=== PATIENT | female | born 1940 | race Caucasian/White ===

== ENCOUNTER → 2017-12-25 14:09 | Outpatient (CLI) | payer OTHER, SELFPAY ==
--- NOTE | 2017-12-25 | DI.RAD.S_ITS ---
PROCEDURE: XR CHEST 2V INDICATIONS: weakness,myalgia,fatigue TECHNIQUE: 2 views of the chest were acquired. COMPARISON: None. FINDINGS: Surgical changes and devices: None. Lungs and pleura: No pleural effusions or pneumothorax. Lungs are clear. Mediastinum: Mediastinal contours are normal. Heart size is normal. Bones and chest wall: No suspicious bony abnormalities. Soft tissues appear unremarkable. IMPRESSION: No source of weakness or myalgia is found. Prior left proximal humeral arthroplasty. Dictated by: George Hebert M.D. on 12/25/2017 at 14:43 Approved by: George Hebert M.D. on 12/25/2017 at 14:44
== END ==
PROVIDERS: PCP Physician Assistant; Visit Provider Physician Assistant
DX: M79.10 Myalgia, unspecified site (principal); R53.83 Other fatigue; R53.81 Other malaise
CPT/HCPCS: 71046

== ENCOUNTER → 2018-04-22 15:59 | Outpatient (CLI) | payer OTHER, SELFPAY ==
--- NOTE | 2018-04-22 16:01 | DI.MRI.S_ITS ---
PROCEDURE: MR LUMBAR SPINE WO CON INDICATIONS: Low back pain and stiffness TECHNIQUE: Noncontrast sagittal T1 spin echo and T2 fast echo, sagittal STIR, axial T1 and T2 fast spin echo through the lumbar spine. In cases with scoliosis, additional coronal T2 fast spin echo may be performed. COMPARISON: [facility], , L-SPINE WITHOUT CONTRAST, 12/14/2014, 9:51. FINDINGS: Image quality: Excellent. Alignment and Curvature: There is grade 1 anterolisthesis of L4 on L5 and L5 on S1. Bone Marrow: Marrow is of normal overall signal. No acute vertebral body compression fractures. Spinal Cord: Conus medullaris terminates at the L1 level. Visualized cord demonstrates normal signal and size. Paraspinous Soft Tissues: No paravertebral masses. L1-L2: Mild loss of disc height and disc desiccation. There is diffuse posterior disc bulge and disc osteophyte complex. Mild bilateral facet arthropathy and hypertrophy of ligamentum flavum. The central canal is mildly narrowed. Mild to moderate bilateral foraminal stenosis, increased compared to the last exam. L2-L3: Moderate loss of disc height and disc desiccation. There is diffuse posterior disc bulge and disc osteophyte complex. Mild bilateral facet arthropathy and hypertrophy of ligamentum flavum. The central canal is mildly narrowed. Mild to moderate bilateral foraminal stenosis, increased compared to the last exam. L3-L4: Moderate loss of disc height and disc desiccation. There is diffuse posterior disc bulge and disc osteophyte complex. Moderate bilateral facet arthropathy and hypertrophy of ligamentum flavum. The central canal is ffyr-sw-nxxhwpdbju narrowed. Moderate bilateral foraminal stenosis, increased compared to the last exam. L4-L5: Mild loss of disc height and disc desiccation. There is diffuse posterior disc bulge and disc osteophyte complex. Severe bilateral facet arthropathy and moderate hypertrophy of ligamentum flavum. The central canal is minimally narrowed. Nqyb-be-indvrxxg bilateral foraminal stenosis, increased compared to the last exam. L5-S1: Bzcoubhg-zm-obmvmd loss of disc height and disc desiccation. There is diffuse posterior disc bulge and disc osteophyte complex. Severe bilateral facet arthropathy. The central canal is patent. Moderate bilateral foraminal stenosis, increased compared to the last exam. IMPRESSION: 1. Progression of multilevel degenerative disc disease and facet arthropathy as described. 2. Mizs-zn-pnyqronh central canal stenosis at L3-L4. 3. Multilevel foraminal stenosis as described. Dictated by: Concepción Evans M.D. on 04/22/2018 at 17:10 Approved by: Concepción Evans M.D. on 04/22/2018 at 17:41
== END ==
PROVIDERS: PCP Physician Assistant; Visit Provider Physical Medicine & Rehabilitation
DX: M54.5 Low back pain (principal); M51.36 Other intervertebral disc degeneration, lumbar region; M51.37 Other intervertebral disc degeneration, lumbosacral region; M48.061 Spinal stenosis, lumbar region without neurogenic claudication; M48.07 Spinal stenosis, lumbosacral region; M47.816 Spondylosis without myelopathy or radiculopathy, lumbar region; M47.817 Spondylosis without myelopathy or radiculopathy, lumbosacral region; M43.16 Spondylolisthesis, lumbar region
CPT/HCPCS: 72148

== ENCOUNTER → 2018-05-21 12:45 | Outpatient (CLI) | payer OTHER, SELFPAY ==
--- NOTE | 2018-05-21 12:47 | DI.RAD.S_ITS ---
PROCEDURE: XR LUMBAR SPINE MIN 4V INDICATIONS: L4-5 L5-S1 spondylolisthesis TECHNIQUE: 5 views of the lumbar spine were acquired. COMPARISON: None. FINDINGS: Bones: No fracture or focal osseous destruction. Multilevel endplate spurring and sclerosis. Grade 1 anterolisthesis of L4 and L5 and L5 on S1. Diffuse facet arthropathy. Moderate narrowing of all the lumbar disc spaces except at L4-L5 where there is mild disc height loss. Soft tissues: Overlying bowel gas pattern is normal. No suspicious soft tissue calcifications. Oblique images: No pars defects. IMPRESSION: Diffuse moderate lumbar spondylosis and facet arthropathy. Grade 1 anterolisthesis of L4 and L5, and L5 on S1. Dictated by: Steve Grant M.D. on 05/21/2018 at 14:47 Approved by: Steve Grant M.D. on 05/21/2018 at 14:48
== END ==
PROVIDERS: PCP Physician Assistant; Visit Provider Physical Medicine & Rehabilitation
DX: M43.16 Spondylolisthesis, lumbar region (principal); M43.17 Spondylolisthesis, lumbosacral region; M47.816 Spondylosis without myelopathy or radiculopathy, lumbar region
CPT/HCPCS: 72110

== ENCOUNTER 2018-06-09 07:18 | Outpatient (CLI) | payer OTHER, SELFPAY ==
[2018-06-09] VITALS (8 sets, daily range): BP systolic 110–136; BP diastolic 43–84; PULSE 73–81; RESP 16–18; TEMP 36.2; O2SAT 95–98
--- NOTE | 2018-06-09 07:19 | DI.RAD.S_ITS ---
PROCEDURE: PAIN L/S FACET INJ/BLK 1ST FRITZ COMPARISON: None. INDICATIONS: SPINAL STENOSIS FINDINGS: There are bilateral L4-5 and L5 S1-1 limited localization is for injection along the expected interarticular facet joints in these 4 areas. IMPRESSION: Successful bilateral facet joint needle tip localization at L4-5 and L5-S1 for a subsequent series of facet joint steroid injections. Dictated by: George Hebert M.D. on 06/09/2018 at 10:50 Approved by: George Hebert M.D. on 06/09/2018 at 10:52
[2018-06-09] MEDS: MIDAZOLAM 5 MG/5 ML VIAL IV (08:37)
[2018-06-09] MEDS: LIDOCAINE 1% 20 ML INJ 10 ML INJ (08:40)
[2018-06-09] MEDS: IOPAMIDOL 15 ML VIAL 3 ML INJ (08:40)
[2018-06-09] MEDS: BETAMETHASONE 30 MG/5 ML MDV 12 MG INJ (08:40)
[2018-06-09] MEDS: BUPIVACAINE 0.5% (PF) VIAL 2 ML INJ (08:40)
--- NOTE | 2018-06-09 08:52 | PC.NURSE ---
Pt tolerated procedure. assisted off the table with standby assist. Transferred pt to pre procedure room via wheelchair for continued monitoring with Elyse BUTLER.
--- NOTE | 2018-06-09 08:58 | PM.PROC.1 ---
Procedures Date/Time Date of procedure: 06/09/18 Time of procedure: 08:58 General Procedure description: PREOP DIAGNOSIS 1. FACET ARTHROPATHY 2. AXIAL LBP 3. MULTILEVEL DDD POST OP DIAGNOSIS 1. FACET ARTHROPATHY 2. AXIAL LBP 3. MULTILEVEL DDD PROCEDURES 1. FLUORSCOPICALLY GUIDED CONTRAST CONTROLLED FACET JOINT INJECTIONS BILATERAL L4/5, L5/S1 PHYSICIAN: Savage Drake, DO INDICATIONS Kami Vicente is referred by [facility] for treatment of Axial LBP FINDINGS Multilevel Facet Arthropathy with Clinically significant axial LBP DESCRIPTION OF PROCEDURE Fluoroscopically guided, contrast-controlled bilateral L4/5, L5/S1 facet joint injections. Following denial of allergy and review of potential side effects and complications, including, but not necessarily limited to, infection, allergic reaction, local tissue breakdown, stroke, temporary or permanent nerve injury, paralysis, and possible , the patient indicated that the patient understood and agreed to proceed. An informed consent document was signed by the patient, witnessed by a nurse, and placed in the patient's chart. Additionally, other treatment options including medications, modalities, and physical therapy were reviewed with the patient. After review of previous anaesthesic history and IV conscious sedation the patient was deemed safe to proceed with todays procedure with IV conscious sedation as ASA class II designation. Safety time-out was performed to confirm patient ID, procedure to be performed and site of procedure. IV sedation was accomplished with 3mg of Versed as administered by the RN after DO order, titrated to patient comfort during the course of the procedure while the patient remained responsive to all verbal commands In the prone position, following sterile prep and drape of the lumbar region, the posterior aspect of the L4/5, L5/S1 facet joints were identified fluoroscopically. The skin was anesthetized via a 25-gauge 1.5-inch needle with 1% lidocaine solution into the corresponding facet joints. At this point, a 22-gauge 3.5-inch spinal needle was atraumatically introduced and advanced under fluoroscopic guidance into the corresponding facet joints. Following negative aspiration, injections of approximately 0.2-cc of Isovue 200 confirmed interarticular placement without vascular uptake. The identical procedure was then performed at the L4/5, L5/S1 facet joints on the left. Radiological data, including multiple fluoroscopic views of the lumbosacral spine, reveal a spinal needle at the L4/5, L5/S1 facet joints bilaterally. Subsequent views show flow of contrast material both superiorly and inferiorly within the joint space without vascular or intrathecal uptake. At this point, a total of 0.5 cc including a mixture of 0.25cc Marcaine and 0.25cc betamethasone was injected without complication into each of the corresponding facet joints. The patient tolerated the procedure well without signs or symptoms of complications prior to transfer to the recovery area continued monitoring without incident. The patient was then transferred to the recovery area where they were observed for an appropriate period of time after the injection. The patient reported a VAS score of 7 prior to the procedure and a post-procedure VAS of 0. Total Fluoroscopy Time: 20.3 seconds Total Conscious Sedation Time: 24min POST OP INSTRUCTIONS The patient was provided a Pain Log to continue to record their response to the target-specific procedure prior to follow-up visit with their referring physician. Additionally, specific post-injection care instructions and a contact number to our office were provided if concerns arise regarding possible complications associated with the procedure are suspected. Savage Drake DO Complications: none
== END 2018-06-09 09:25 | disposition home or self-care (01) ==
LOC: RAD 07:19
PROVIDERS: PCP Physician Assistant; Visit Provider Physical Medicine & Rehabilitation
DX: M47.816 Spondylosis without myelopathy or radiculopathy, lumbar region (principal); M47.817 Spondylosis without myelopathy or radiculopathy, lumbosacral region; M54.5 Low back pain; M51.36 Other intervertebral disc degeneration, lumbar region; M51.37 Other intervertebral disc degeneration, lumbosacral region
CPT/HCPCS: 64493; 64494; 99152; J0702; J2250

== ENCOUNTER 2018-07-13 14:43 | Emergency (ER) | payer OTHER, SELFPAY ==
--- NOTE | 2018-07-13 | DI.RAD.S_ITS ---
PROCEDURE: XR WRIST RT MIN 3V INDICATIONS: ground level fall with right wrist pain. TECHNIQUE: 4 views of the wrist were acquired. COMPARISON: None. FINDINGS: Bones: Deformity of the distal radius and scaphoid suggest prior, healed injury. No acute fracture or dislocation. Scaphoid view: The scaphoid appears deformed, but intact. Soft tissues: No suspicious soft tissue calcifications. IMPRESSION: Findings suspicious for prior, now healed trauma of the scaphoid and distal radius. No acute fracture visualized. If pain persists, followup imaging in 5-7 days is recommended to exclude occult fracture. Dictated by: Vivi Sprague M.D. on 07/13/2018 at 17:09 Approved by: Vivi Sprague M.D. on 07/13/2018 at 17:10
[2018-07-13 14:46] VITALS: BP 173/94; PULSE 72; RESP 16; TEMP 37.3; O2SAT 100
--- NOTE | 2018-07-13 16:09 | ED.HEATRA ---
HPI - Head Injury <Tawana Del Cid PA-C - Last Filed: 07/13/18 22:14> General Chief complaint: Head Injury Stated complaint: FALL HURT FACE Time Seen by Provider: 07/13/18 16:09 Source: patient Mode of arrival: ambulatory Limitations: no limitations History of Present Illness HPI Narrative: This 78-year-old female was walking her dog when she tripped over uneven sidewalk and fell forward. She thinks she bumped her right knee and hand but thinks those are okay. She also fell forward onto her face hitting her nose, mouth and lip area, and her lip has been bleeding. She does not think she hit her head but does have a mild frontal headache. She denies any nausea or vomiting. She denies any vision change. She denies any LOC, states she was ?surprised? for a few minutes, but was able to get up and walk. She denies any pain in her neck or back. She states her glasses did not break. She denies any other pain or injury. Related Data Home Medications Medication Instructions Recorded Confirmed celecoxib 200 mg capsule 200 mg PO DAILY PRN #0 cap 05/24/18 06/30/18 Resmed Airsense 10 CPAP #1 ea 06/30/18 07/13/18 albuterol sulfate 1 dose INHALATION PRN PRN 07/13/18 07/13/18 allopurinol 300 mg PO DAILY 07/13/18 07/13/18 citalopram 40 mg PO DAILY 07/13/18 07/13/18 duloxetine 60 mg PO DAILY 07/13/18 07/13/18 gabapentin 600 mg PO TID 07/13/18 07/13/18 simvastatin 10 mg PO DAILY 07/13/18 07/13/18 Allergies Allergy/AdvReac Type Severity Reaction Status Date / Time No Known Allergies Allergy Uncoded 06/30/18 13:59 Review of Systems <Tawana Del Cid PA-C - Last Filed: 07/13/18 22:14> Review of Systems ROS Unobtainable: All systems reviewed & are unremarkable except as noted in HPI and below PFSH <Tawana Del Cid PA-C - Last Filed: 07/13/18 22:14> Medical History Spondylolisthesis at L4-L5 level (Chronic) Herniated nucleus pulposus, L3-4 (Chronic) Lumbosacral spondylosis (Chronic) Primary insomnia (Chronic) Obstructive sleep apnea of adult (Chronic) Insomnia, persistent (Chronic ~2009) Atypical chest pain (Acute) Hypertension (Chronic) Asthma (Chronic) HNP (herniated nucleus pulposus) (Chronic) Spinal stenosis (Chronic) Surgical History (Updated 07/13/18 @ 16:12 by Tawana Del Cid PA-C) History of total replacement of left shoulder joint (Resolved) S/P shoulder replacement (Resolved) Social History marital status: details: to Savage AyalaBen), lives in [place] household members: spouse lives independently: Yes caregiver/support person: No housing: house Smoking Status: Never smoker alcohol intake: current Social History marital status: details: to Wan (Bob), lives in [place] household members: spouse lives independently: Yes caregiver/support person: No housing: house Smoking Status: Never smoker alcohol intake: current Exam <Tawana Del Cid PA-C - Last Filed: 07/13/18 22:14> Narrative Exam Narrative: GENERAL APPEARANCE: Patient sitting comfortably, in no distress. HEENT: NC/AT, PERRL, EOMI, normal ear canals, nasal mucosa and oropharynx NECK: Supple LUNGS: Clear to auscultation bilaterally. HEART: Rate and rhythm regular without murmur, normal S1 and S2, no S3 or S4. NEUROLOGIC: Alert and oriented, normal speech, and coordination. MUSCULOSKELETAL: Full Csp AROM without point tenderness over the cervical spine or paraspinal musculature. No tenderness over the thoracolumbar spine. Right knee minimal joint line tenderness. Full range of motion without tenderness, moderate crepitus, no joint effusion. Right forearm and wrist no tenderness to palpation, full range of motion. She has some tenderness over the right hand snuffbox, no tenderness elsewhere over the metacarpal bones or fingers. Full range of motion. Strength is intact against resistance in the fingers including some opposition on the right. DERMATOLOGIC: There are multiple abrasions over the nose, small abrasions on the mandibular area, and a laceration on the labial this of the left lower lip, irregular, about 6 mm in length. There is a superficial laceration and abrasions on the external portion left lower lip, no through and through wound. Small abrasions on the right knee. No abrasions or ecchymoses noted elsewhere. Initial Vital Signs Initial Vital Signs: Vital Signs Temperature 99.2 F 07/13/18 14:46 Pulse Rate 72 07/13/18 14:46 Respiratory Rate 16 07/13/18 14:46 Blood Pressure 173/94 H 07/13/18 14:46 Pulse Oximetry 100 07/13/18 14:46 <Jackson De La O DO - Last Filed: 07/20/18 00:02> Initial Vital Signs Initial Vital Signs: Vital Signs Temperature 99.2 F 07/13/18 14:46 Pulse Rate 72 07/13/18 14:46 Respiratory Rate 16 07/13/18 14:46 Blood Pressure 173/94 H 07/13/18 14:46 Pulse Oximetry 100 07/13/18 14:46 Procedures <NAHID Lizarraga Last Filed: 07/13/18 22:14> Laceration Repair Laceration 1: Site: lip Size (cm): 6 Description: irregular (macerated) Local Anesthetic: lidocaine 1% and with epi Amount of anesthesia used (mL): 0.6 Pre-repair: wound explored Skin layer closed with: vicryl (#1 absorable) Size (cm): 5-0 Course <NAHID Lizarraga Last Filed: 07/13/18 22:14> Orders Ordered: Discontinued Medications Hydrocodone Bitart/Acetaminophen (Chunky 5/325) 1 tab PO NOW ONE Stop: 07/13/18 16:32 Last Admin: 07/13/18 17:17 Dose: 1 tab Diphtheria/Tetanus/Acell Pertussis (Adacel) 0.5 ml IM .ONCE ONE Stop: 07/13/18 16:54 Last Admin: 07/13/18 17:17 Dose: 0.5 ml Vital Signs - 8 hr 07/13/18 14:46 07/13/18 18:27 Temperature 99.2 F Pulse Rate 72 78 Respiratory Rate 16 17 Blood Pressure 173/94 H Blood Pressure [Left Arm] 172/95 H Pulse Oximetry 100 96 <Jackson De La O DO - Last Filed: 07/20/18 00:02> Orders Ordered: Discontinued Medications Hydrocodone Bitart/Acetaminophen (Chunky 5/325) 1 tab PO NOW ONE Stop: 07/13/18 16:32 Last Admin: 07/13/18 17:17 Dose: 1 tab Diphtheria/Tetanus/Acell Pertussis (Adacel) 0.5 ml IM .ONCE ONE Stop: 07/13/18 16:54 Last Admin: 07/13/18 17:17 Dose: 0.5 ml Vital Signs - 8 hr 07/13/18 14:46 07/13/18 18:27 Temperature 99.2 F Pulse Rate 72 78 Respiratory Rate 16 17 Blood Pressure 173/94 H Blood Pressure [Left Arm] 172/95 H Pulse Oximetry 100 96 MDM - Head Injury <Tawana Del Cid PA-C - Last Filed: 07/13/18 22:14> Imaging Data hand: Radiologist's impression: [address] [address] XRay Report Signed Patient: Kami Donald#: [id number] : 2Acct:[id number] Age/Sex: 78 / FDate of Service: 07/13/18 Loc: ED Accession Number: [id number] Procedure: XR hand RT min 3V Ordering Provider: Tawana Del Cid P.A-C PROCEDURE: XR HAND RT MIN 3V 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 COMPARISON: [facility], HAND 3V LEFT, 02/26/2012, 13:29. FINDINGS: Bones: There is deformity of the distal scaphoid, but no definite acute scaphoid fracture is visualized. There is a previous healed distal radial fracture. No acute fracture visualized. Severe degenerative changes are present at multiple interphalangeal joints. Soft tissues: No suspicious soft tissue calcifications. IMPRESSION: Deformity of the scaphoid and distal radius suggesting prior, now healed trauma. No definite acute fracture visualized. If pain persists, followup imaging in 5-7 days is recommended to exclude occult fracture. Dictated by: Vivi Sprague M.D. on 07/13/2018 at 17:05 Approved by: Vivi Sprague M.D. on 07/13/2018 at 17:07 wrist: Radiologist's impression: [address] [address] XRay Report Signed Patient: Kami Donald#: [id number] : 2Acct:[id number] Age/Sex: 78 / FDate of Service: 07/13/18 Loc: ED Accession Number: [id number] Procedure: XR wrist RT min 3V Ordering Provider: Tawana Del Cid P.A-C PROCEDURE: XR WRIST RT MIN 3V INDICATIONS: ground level fall with right wrist pain. TECHNIQUE: 4 views of the wrist were acquired. COMPARISON: None. FINDINGS: Bones: Deformity of the distal radius and scaphoid suggest prior, healed injury. No acute fracture or dislocation. Scaphoid view: The scaphoid appears deformed, but intact. Soft tissues: No suspicious soft tissue calcifications. IMPRESSION: Findings suspicious for prior, now healed trauma of the scaphoid and distal radius. No acute fracture visualized. If pain persists, followup imaging in 5-7 days is recommended to exclude occult fracture. Dictated by: Vivi Sprague M.D. on 07/13/2018 at 17:09 Approved by: Vivi Sprague M.D. on 07/13/2018 at 17:10 CT scan - head: Radiologist's impression: [address] [address] [address] Scan Report Signed Patient: Kami Donald#: [id number] : 2At:[id number] Age/Sex: 78 / FDate of Service: 07/13/18 Loc: ED Accession Number: [id number] Procedure: CT head/brain wo con Ordering Provider: Tawana Del Cid P.A-C PROCEDURE: CT HEAD/BRAIN WO CON INDICATIONS: fall TECHNIQUE: Noncontrast 4.5 mm thick angled axial sections acquired from the foramen magnum to the vertex, with coronal and sagittal reformats. For radiation dose reduction, the following was used: automated exposure control, adjustment of mA and/or kV according to patient size. COMPARISON: [facility], CT, CT FACIAL BONES WO CON, 07/13/2018, 16:51. [facility], CT, HEAD WITHOUT CONTRAST, 10/25/2016, 18:18. FINDINGS: Image quality: Excellent. CSF spaces: Basal cisterns are patent. No extra-axial fluid collections. The ventricles are symmetric in size and shape. Brain: No intracranial bleeds or masses. There is cerebral volume loss for age, with resultant ventricular and sulcal prominence. There are periventricular and deep white matter chronic small vessel ischemic changes. There is intracranial internal carotid artery atherosclerosis. Skull and face: Remote, healed nasal bone fractures are seen. Calvarium and visualized facial bones appear intact, without suspicious lesions. Sinuses: Visualized sinuses and mastoids are clear. IMPRESSION: No acute intracranial hemorrhage. Remote, healed nasal bone fractures. Dictated by: Crow Gonzalez M.D. on 07/13/2018 at 16:09 Approved by: Crow Gonzalez M.D. on 07/13/2018 at 16:11 facial bones: Radiologist's impression: [place] [address] CT Scan Report Signed Patient: Kami Donald#: [id number] : 2Acct:[id number] Age/Sex: 78 / FDate of Service: 07/13/18 Loc: ED Accession Number: [id number] Procedure: CT facial bones wo con Ordering Provider: Tawana Del Cid P.A-C PROCEDURE: CT FACIAL BONES WO CON INDICATIONS: fall, pain TECHNIQUE: Noncontrast 2.5 mm thick axial images acquired from the mandible through the frontal sinuses, with coronal and sagittal reformatting. For radiation dose reduction, the following was used: automated exposure control, adjustment of mA and/or kV according to patient size. COMPARISON: [facility], CT, CT HEAD/BRAIN WO CON, 07/13/2018, 16:51. [facility], CT, FACIAL BONES WITHOUT CONTRAST, 10/25/2016, 18:18. FINDINGS: Image quality: Excellent. Bones and teeth: Orbital epstein are intact. Sinus epstein show no fracture or deformity. Nasal bones demonstrate remote, healed fractures. The nasal septum is intact. Visualized portions of the mandible demonstrate no fractures or subluxation. Degenerative changes can be seen on the temporomandibular joints, left worse than right. Degenerative changes are seen of the visualized cervical spine. Zygomatic arches are intact. Pterygoid plates are intact. Visualized portions of the skull base and auditory canals are intact. Sinuses: Paranasal sinuses are aerated, without fluid levels, mucosal thickening, or mucoceles. Mastoid air cells are aerated. Soft tissues: No edema, masses, or fluid collections. No enlarged lymph nodes. No soft tissue lacerations or debris. Vascular: Visualized vascular structures appear normal in the absence of contrast. Bony vascular foramina and canals are intact. IMPRESSION: Negative for acute fracture. Remote, healed nasal bone fractures. Degenerative changes are seen, including involving the left temporomandibular joint. Dictated by: Crow Gonzalez M.D. on 07/13/2018 at 16:11 Approved by: Crow Gonzalez M.D. on 07/13/2018 at 16:12 Discharge Plan Departure Patient Disposition: Home Clinical Impression: Contusion of multiple sites Laceration of lip Qualifiers: Encounter type: initial encounter Qualified Code(s): S01.511A - Laceration without foreign body of lip, initial encounter Concussion without loss of consciousness Qualifiers: Encounter type: initial encounter Qualified Code(s): S06.0X0A - Concussion without loss of consciousness, initial encounter Discharge Date/Time: 07/13/18 18:44 Interventions: ED Discharge Assessment Last Done: 07/13/18 18:45 Instructions: DI for Concussion, Concussion, How to Care for Absorbable Sutures Activity Restrictions/Additional Instructions: As we talked about, you should return or see your PCP right away if any signs of infection. You need to repeat your hand x-ray if your pain is not improving in the next week. You should also return if you have any acutely worsening headache, or new symptoms such as vomiting or vision change. Please rest quietly today and gradually resume your usual activities as you to likely have a mild concussion. It may take some time for you get back to normal activity tolerance. Please follow up with her primary care clinic this week to make sure you are feeling better before you take off for [place], and have a wonderful trip! Prescriptions: No Action citalopram 40 mg Tablet 40 mg PO DAILY RF: 0 simvastatin 10 mg Tablet 10 mg PO DAILY RF: 0 allopurinol 300 mg Tablet 300 mg PO DAILY RF: 0 albuterol sulfate 90 mcg/actuation Hfa Aerosol Inhaler 1 dose Inhalation PRN PRN (Reason: Shortness Of Breath) RF: 0 gabapentin 300 mg capsule 600 mg PO TID RF: 0 duloxetine 30 mg Capsule,Delayed Release(Dr/Ec) 60 mg PO DAILY RF: 0 celecoxib [Celebrex] 200 mg capsule 200 mg PO DAILY PRN (Reason: pain) Qty: 0 RF: 0 Resmed Airsense 10 CPAP Qty: 1 RF: 0 Referrals: Helene Khan PA-C [Primary Care Provider] - <Jackson De La O DO - Last Filed: 07/20/18 00:02> Cosign ED Attending Rocio Attestation: I was immediately available in the department for consultation. Documentation has been reviewed. I agree with assessment and plan.
--- NOTE | 2018-07-13 16:14 | ED_ITS ---
HPI - Head Injury <Tawana Del Cid PA-C - Last Filed: 07/13/18 22:14> General Chief complaint: Head Injury Stated complaint: FALL HURT FACE Time Seen by Provider: 07/13/18 16:09 Source: patient Mode of arrival: ambulatory Limitations: no limitations History of Present Illness HPI Narrative: This 78-year-old female was walking her dog when she tripped over uneven sidewalk and fell forward. She thinks she bumped her right knee and hand but thinks those are okay. She also fell forward onto her face hitting her nose, mouth and lip area, and her lip has been bleeding. She does not think she hit her head but does have a mild frontal headache. She denies any nausea or vomiting. She denies any vision change. She denies any LOC, states she was ?surprised? for a few minutes, but was able to get up and walk. She denies any pain in her neck or back. She states her glasses did not break. She denies any other pain or injury. Related Data Home Medications Medication Instructions Recorded Confirmed celecoxib 200 mg capsule 200 mg PO DAILY PRN #0 cap 05/24/18 06/30/18 Resmed Airsense 10 CPAP #1 ea 06/30/18 07/13/18 albuterol sulfate 1 dose INHALATION PRN PRN 07/13/18 07/13/18 allopurinol 300 mg PO DAILY 07/13/18 07/13/18 citalopram 40 mg PO DAILY 07/13/18 07/13/18 duloxetine 60 mg PO DAILY 07/13/18 07/13/18 gabapentin 600 mg PO TID 07/13/18 07/13/18 simvastatin 10 mg PO DAILY 07/13/18 07/13/18 Allergies Allergy/AdvReac Type Severity Reaction Status Date / Time No Known Allergies Allergy Uncoded 06/30/18 13:59 Review of Systems <Tawana Del Cid PA-C - Last Filed: 07/13/18 22:14> Review of Systems ROS Unobtainable: All systems reviewed & are unremarkable except as noted in HPI and below PFSH <Tawana Del Cid PA-C - Last Filed: 07/13/18 22:14> Medical History Spondylolisthesis at L4-L5 level (Chronic) Herniated nucleus pulposus, L3-4 (Chronic) Lumbosacral spondylosis (Chronic) Primary insomnia (Chronic) Obstructive sleep apnea of adult (Chronic) Insomnia, persistent (Chronic ~2009) Atypical chest pain (Acute) Hypertension (Chronic) Asthma (Chronic) HNP (herniated nucleus pulposus) (Chronic) Spinal stenosis (Chronic) Surgical History (Updated 07/13/18 @ 16:12 by Tawana Del Cid PA-C) History of total replacement of left shoulder joint (Resolved) S/P shoulder replacement (Resolved) Social History marital status: details: to Savage AyalaBen), lives in [place] household members: spouse lives independently: Yes caregiver/support person: No housing: house Smoking Status: Never smoker alcohol intake: current Social History marital status: details: to Wan (Bob), lives in [place] household members: spouse lives independently: Yes caregiver/support person: No housing: house Smoking Status: Never smoker alcohol intake: current Exam <Tawana Del Cid PA-C - Last Filed: 07/13/18 22:14> Narrative Exam Narrative: GENERAL APPEARANCE: Patient sitting comfortably, in no distress. HEENT: NC/AT, PERRL, EOMI, normal ear canals, nasal mucosa and oropharynx NECK: Supple LUNGS: Clear to auscultation bilaterally. HEART: Rate and rhythm regular without murmur, normal S1 and S2, no S3 or S4. NEUROLOGIC: Alert and oriented, normal speech, and coordination. MUSCULOSKELETAL: Full Csp AROM without point tenderness over the cervical spine or paraspinal musculature. No tenderness over the thoracolumbar spine. Right knee minimal joint line tenderness. Full range of motion without tenderness, moderate crepitus, no joint effusion. Right forearm and wrist no tenderness to palpation, full range of motion. She has some tenderness over the right hand snuffbox, no tenderness elsewhere over the metacarpal bones or fingers. Full range of motion. Strength is intact against resistance in the fingers including some opposition on the right. DERMATOLOGIC: There are multiple abrasions over the nose, small abrasions on the mandibular area, and a laceration on the labial this of the left lower lip, irregular, about 6 mm in length. There is a superficial laceration and abrasions on the external portion left lower lip, no through and through wound. Small abrasions on the right knee. No abrasions or ecchymoses noted elsewhere. Initial Vital Signs Initial Vital Signs: Vital Signs Temperature 99.2 F 07/13/18 14:46 Pulse Rate 72 07/13/18 14:46 Respiratory Rate 16 07/13/18 14:46 Blood Pressure 173/94 H 07/13/18 14:46 Pulse Oximetry 100 07/13/18 14:46 <Jackson De La O DO - Last Filed: 07/20/18 00:02> Initial Vital Signs Initial Vital Signs: Vital Signs Temperature 99.2 F 07/13/18 14:46 Pulse Rate 72 07/13/18 14:46 Respiratory Rate 16 07/13/18 14:46 Blood Pressure 173/94 H 07/13/18 14:46 Pulse Oximetry 100 07/13/18 14:46 Procedures <NAHID Lizarraga Last Filed: 07/13/18 22:14> Laceration Repair Laceration 1: Site: lip Size (cm): 6 Description: irregular (macerated) Local Anesthetic: lidocaine 1% and with epi Amount of anesthesia used (mL): 0.6 Pre-repair: wound explored Skin layer closed with: vicryl (#1 absorable) Size (cm): 5-0 Course <NAHID Lizarraga Last Filed: 07/13/18 22:14> Orders Ordered: Discontinued Medications Hydrocodone Bitart/Acetaminophen ([place] 5/325) 1 tab PO NOW ONE Stop: 07/13/18 16:32 Last Admin: 07/13/18 17:17 Dose: 1 tab Diphtheria/Tetanus/Acell Pertussis (Adacel) 0.5 ml IM .ONCE ONE Stop: 07/13/18 16:54 Last Admin: 07/13/18 17:17 Dose: 0.5 ml Vital Signs - 8 hr 07/13/18 14:46 07/13/18 18:27 Temperature 99.2 F Pulse Rate 72 78 Respiratory Rate 16 17 Blood Pressure 173/94 H Blood Pressure [Left Arm] 172/95 H Pulse Oximetry 100 96 <Jackson De La O DO - Last Filed: 07/20/18 00:02> Orders Ordered: Discontinued Medications Hydrocodone Bitart/Acetaminophen ([place] 5/325) 1 tab PO NOW ONE Stop: 07/13/18 16:32 Last Admin: 07/13/18 17:17 Dose: 1 tab Diphtheria/Tetanus/Acell Pertussis (Adacel) 0.5 ml IM .ONCE ONE Stop: 07/13/18 16:54 Last Admin: 07/13/18 17:17 Dose: 0.5 ml Vital Signs - 8 hr 07/13/18 14:46 07/13/18 18:27 Temperature 99.2 F Pulse Rate 72 78 Respiratory Rate 16 17 Blood Pressure 173/94 H Blood Pressure [Left Arm] 172/95 H Pulse Oximetry 100 96 MDM - Head Injury <Tawana Del Cid PA-C - Last Filed: 07/13/18 22:14> Imaging Data hand: Radiologist's impression: [address] [address] XRay Report Signed Patient: Kami Donald#: [id number] : 2Acct:[id number] Age/Sex: 78 / FDate of Service: 07/13/18 Loc: ED Accession Number: [id number] Procedure: XR hand RT min 3V Ordering Provider: Tawana Del Cid P.A-C PROCEDURE: XR HAND RT MIN 3V 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 COMPARISON: [facility], HAND 3V LEFT, 02/26/2012, 13:29. FINDINGS: Bones: There is deformity of the distal scaphoid, but no definite acute scaphoid fracture is visualized. There is a previous healed distal radial fracture. No acute fracture visualized. Severe degenerative changes are present at multiple interphalangeal joints. Soft tissues: No suspicious soft tissue calcifications. IMPRESSION: Deformity of the scaphoid and distal radius suggesting prior, now healed trauma. No definite acute fracture visualized. If pain persists, followup imaging in 5-7 days is recommended to exclude occult fracture. Dictated by: Vivi Sprague M.D. on 07/13/2018 at 17:05 Approved by: Vivi Sprague M.D. on 07/13/2018 at 17:07 wrist: Radiologist's impression: [address] [address] XRay Report Signed Patient: Kami Donald#: [id number] : 2Acct:[id number] Age/Sex: 78 / FDate of Service: 07/13/18 Loc: ED Accession Number: [id number] Procedure: XR wrist RT min 3V Ordering Provider: Tawana Del Cid P.A-C PROCEDURE: XR WRIST RT MIN 3V INDICATIONS: ground level fall with right wrist pain. TECHNIQUE: 4 views of the wrist were acquired. COMPARISON: None. FINDINGS: Bones: Deformity of the distal radius and scaphoid suggest prior, healed injury. No acute fracture or dislocation. Scaphoid view: The scaphoid appears deformed, but intact. Soft tissues: No suspicious soft tissue calcifications. IMPRESSION: Findings suspicious for prior, now healed trauma of the scaphoid and distal radius. No acute fracture visualized. If pain persists, followup imaging in 5-7 days is recommended to exclude occult fracture. Dictated by: Vivi Sprague M.D. on 07/13/2018 at 17:09 Approved by: Vivi Sprague M.D. on 07/13/2018 at 17:10 CT scan - head: Radiologist's impression: [address] [address] [address] Scan Report Signed Patient: Kami Donald#: [id number] : 2At:[id number] Age/Sex: 78 / FDate of Service: 07/13/18 Loc: ED Accession Number: [id number] Procedure: CT head/brain wo con Ordering Provider: Tawana Del Cid P.A-C PROCEDURE: CT HEAD/BRAIN WO CON INDICATIONS: fall TECHNIQUE: Noncontrast 4.5 mm thick angled axial sections acquired from the foramen magnum to the vertex, with coronal and sagittal reformats. For radiation dose reduction, the following was used: automated exposure control, adjustment of mA and/or kV according to patient size. COMPARISON: [facility], CT, CT FACIAL BONES WO CON, 07/13/2018, 16:51. [facility], CT, HEAD WITHOUT CONTRAST, 10/25/2016, 18:18. FINDINGS: Image quality: Excellent. CSF spaces: Basal cisterns are patent. No extra-axial fluid collections. The ventricles are symmetric in size and shape. Brain: No intracranial bleeds or masses. There is cerebral volume loss for age, with resultant ventricular and sulcal prominence. There are periventricular and deep white matter chronic small vessel ischemic changes. There is intracranial internal carotid artery atherosclerosis. Skull and face: Remote, healed nasal bone fractures are seen. Calvarium and visualized facial bones appear intact, without suspicious lesions. Sinuses: Visualized sinuses and mastoids are clear. IMPRESSION: No acute intracranial hemorrhage. Remote, healed nasal bone fractures. Dictated by: Crow Gonzalez M.D. on 07/13/2018 at 16:09 Approved by: Crow Gonzalez M.D. on 07/13/2018 at 16:11 facial bones: Radiologist's impression: [place] [address] CT Scan Report Signed Patient: Kami Donald#: [id number] : 2Acct:[id number] Age/Sex: 78 / FDate of Service: 07/13/18 Loc: ED Accession Number: [id number] Procedure: CT facial bones wo con Ordering Provider: Tawana Del Cid P.A-C PROCEDURE: CT FACIAL BONES WO CON INDICATIONS: fall, pain TECHNIQUE: Noncontrast 2.5 mm thick axial images acquired from the mandible through the frontal sinuses, with coronal and sagittal reformatting. For radiation dose reduction, the following was used: automated exposure control, adjustment of mA and/or kV according to patient size. COMPARISON: [facility], CT, CT HEAD/BRAIN WO CON, 07/13/2018, 16:51. [facility], CT, FACIAL BONES WITHOUT CONTRAST, 10/25/2016, 18:18. FINDINGS: Image quality: Excellent. Bones and teeth: Orbital epstein are intact. Sinus epstein show no fracture or deformity. Nasal bones demonstrate remote, healed fractures. The nasal septum is intact. Visualized portions of the mandible demonstrate no fractures or subluxation. Degenerative changes can be seen on the temporomandibular joints, left worse than right. Degenerative changes are seen of the visualized cervical spine. Zygomatic arches are intact. Pterygoid plates are intact. Visualized portions of the skull base and auditory canals are intact. Sinuses: Paranasal sinuses are aerated, without fluid levels, mucosal thickening, or mucoceles. Mastoid air cells are aerated. Soft tissues: No edema, masses, or fluid collections. No enlarged lymph nodes. No soft tissue lacerations or debris. Vascular: Visualized vascular structures appear normal in the absence of contrast. Bony vascular foramina and canals are intact. IMPRESSION: Negative for acute fracture. Remote, healed nasal bone fractures. Degenerative changes are seen, including involving the left temporomandibular joint. Dictated by: Crow Gonzalez M.D. on 07/13/2018 at 16:11 Approved by: Crow Gonzalez M.D. on 07/13/2018 at 16:12 Discharge Plan Departure Patient Disposition: Home Clinical Impression: Contusion of multiple sites Laceration of lip Qualifiers: Encounter type: initial encounter Qualified Code(s): S01.511A - Laceration without foreign body of lip, initial encounter Concussion without loss of consciousness Qualifiers: Encounter type: initial encounter Qualified Code(s): S06.0X0A - Concussion without loss of consciousness, initial encounter Discharge Date/Time: 07/13/18 18:44 Interventions: ED Discharge Assessment Last Done: 07/13/18 18:45 Instructions: DI for Concussion, Concussion, How to Care for Absorbable Sutures Activity Restrictions/Additional Instructions: As we talked about, you should return or see your PCP right away if any signs of infection. You need to repeat your hand x-ray if your pain is not improving in the next week. You should also return if you have any acutely worsening headache, or new symptoms such as vomiting or vision change. Please rest quietly today and gradually resume your usual activities as you to likely have a mild concussion. It may take some time for you get back to normal activity tolerance. Please follow up with her primary care clinic this week to make sure you are feeling better before you take off for [place], and have a wonderful trip! Prescriptions: No Action citalopram 40 mg Tablet 40 mg PO DAILY RF: 0 simvastatin 10 mg Tablet 10 mg PO DAILY RF: 0 allopurinol 300 mg Tablet 300 mg PO DAILY RF: 0 albuterol sulfate 90 mcg/actuation Hfa Aerosol Inhaler 1 dose Inhalation PRN PRN (Reason: Shortness Of Breath) RF: 0 gabapentin 300 mg capsule 600 mg PO TID RF: 0 duloxetine 30 mg Capsule,Delayed Release(Dr/Ec) 60 mg PO DAILY RF: 0 celecoxib [Celebrex] 200 mg capsule 200 mg PO DAILY PRN (Reason: pain) Qty: 0 RF: 0 Resmed Airsense 10 CPAP Qty: 1 RF: 0 Referrals: Helene Khan PA-C [Primary Care Provider] - <Jackson De La O DO - Last Filed: 07/20/18 00:02> Cosign ED Attending Rocio Attestation: I was immediately available in the department for consultation. Documentation has been reviewed. I agree with assessment and plan.
--- NOTE | 2018-07-13 16:31 | DI.RAD.S_ITS ---
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 COMPARISON: [facility], , HAND 3V LEFT, 02/26/2012, 13:29. FINDINGS: Bones: There is deformity of the distal scaphoid, but no definite acute scaphoid fracture is visualized. There is a previous healed distal radial fracture. No acute fracture visualized. Severe degenerative changes are present at multiple interphalangeal joints. Soft tissues: No suspicious soft tissue calcifications. IMPRESSION: Deformity of the scaphoid and distal radius suggesting prior, now healed trauma. No definite acute fracture visualized. If pain persists, followup imaging in 5-7 days is recommended to exclude occult fracture. Dictated by: Vivi Sprague M.D. on 07/13/2018 at 17:05 Approved by: Vivi Sprague M.D. on 07/13/2018 at 17:07
--- NOTE | 2018-07-13 16:31 | DI.CT.S_ITS ---
PROCEDURE: CT HEAD/BRAIN WO CON INDICATIONS: fall TECHNIQUE: Noncontrast 4.5 mm thick angled axial sections acquired from the foramen magnum to the vertex, with coronal and sagittal reformats. For radiation dose reduction, the following was used: automated exposure control, adjustment of mA and/or kV according to patient size. COMPARISON: [facility], CT, CT FACIAL BONES WO CON, 07/13/2018, 16:51. [facility], CT, HEAD WITHOUT CONTRAST, 10/25/2016, 18:18. FINDINGS: Image quality: Excellent. CSF spaces: Basal cisterns are patent. No extra-axial fluid collections. The ventricles are symmetric in size and shape. Brain: No intracranial bleeds or masses. There is cerebral volume loss for age, with resultant ventricular and sulcal prominence. There are periventricular and deep white matter chronic small vessel ischemic changes. There is intracranial internal carotid artery atherosclerosis. Skull and face: Remote, healed nasal bone fractures are seen. Calvarium and visualized facial bones appear intact, without suspicious lesions. Sinuses: Visualized sinuses and mastoids are clear. IMPRESSION: No acute intracranial hemorrhage. Remote, healed nasal bone fractures. Dictated by: Crow Gonzalez M.D. on 07/13/2018 at 16:09 Approved by: Crow Gonzalez M.D. on 07/13/2018 at 16:11
--- NOTE | 2018-07-13 16:31 | DI.CT.S_ITS ---
PROCEDURE: CT FACIAL BONES WO CON INDICATIONS: fall, pain TECHNIQUE: Noncontrast 2.5 mm thick axial images acquired from the mandible through the frontal sinuses, with coronal and sagittal reformatting. For radiation dose reduction, the following was used: automated exposure control, adjustment of mA and/or kV according to patient size. COMPARISON: [facility], CT, CT HEAD/BRAIN WO CON, 07/13/2018, 16:51. [facility], CT, FACIAL BONES WITHOUT CONTRAST, 10/25/2016, 18:18. FINDINGS: Image quality: Excellent. Bones and teeth: Orbital epstein are intact. Sinus epstein show no fracture or deformity. Nasal bones demonstrate remote, healed fractures. The nasal septum is intact. Visualized portions of the mandible demonstrate no fractures or subluxation. Degenerative changes can be seen on the temporomandibular joints, left worse than right. Degenerative changes are seen of the visualized cervical spine. Zygomatic arches are intact. Pterygoid plates are intact. Visualized portions of the skull base and auditory canals are intact. Sinuses: Paranasal sinuses are aerated, without fluid levels, mucosal thickening, or mucoceles. Mastoid air cells are aerated. Soft tissues: No edema, masses, or fluid collections. No enlarged lymph nodes. No soft tissue lacerations or debris. Vascular: Visualized vascular structures appear normal in the absence of contrast. Bony vascular foramina and canals are intact. IMPRESSION: Negative for acute fracture. Remote, healed nasal bone fractures. Degenerative changes are seen, including involving the left temporomandibular joint. Dictated by: Crow Gonzalez M.D. on 07/13/2018 at 16:11 Approved by: Crow Gonzalez M.D. on 07/13/2018 at 16:12
[2018-07-13] MEDS: TET,DIPH,PERTUSS(ACELL),VAC/PF 0.5 ML SYRINGE IM (17:17)
[2018-07-13] MEDS: HYDROCODONE/ACET 5/325 TABLET 1 TAB PO (17:17)
[2018-07-13 18:27] VITALS: BP 172/95; PULSE 78; RESP 17; O2SAT 96
== END 2018-07-13 18:44 | disposition home or self-care (01) ==
PROVIDERS: Emergency Provider Internal Medicine; PCP Physician Assistant
DX: S01.511A Laceration without foreign body of lip, initial encounter (principal); S06.0X0A Concussion without loss of consciousness, initial encounter; S80.211A Abrasion, right knee, initial encounter; W18.30XA Fall on same level, unspecified, initial encounter; Z23 Encounter for immunization; M79.641 Pain in right hand
CPT/HCPCS: 12014; 70450; 70486; 73110; 73130; 90471; 99282; 99284; 90715

== ENCOUNTER → 2018-08-19 13:30 | Outpatient (CLI) | payer OTHER, SELFPAY ==
--- NOTE | 2018-08-19 13:34 | DI.RAD.S_ITS ---
PROCEDURE: XR SHOULDER RT MIN 2V INDICATIONS: Shoulder pain TECHNIQUE: 3 views of the shoulder were acquired. COMPARISON: None. FINDINGS: Bones: No fractures or dislocations. No suspicious bony lesions. Visualized ribs appear intact. Mild to moderate degenerative changes of the acromioclavicular joint are present. There moderate degenerative changes of the glenohumeral joint with irregularity and degenerative cystic change involving the inferior glenoid. Soft tissues: No suspicious soft tissue calcifications. IMPRESSION: Mild to moderate degenerative changes of the right shoulder joints. Dictated by: Arthur Simmons M.D. on 08/19/2018 at 14:43 Approved by: Arthur Simmons M.D. on 08/19/2018 at 14:44
== END ==
PROVIDERS: PCP Physician Assistant; Visit Provider Physical Medicine & Rehabilitation
DX: M25.511 Pain in right shoulder (principal); M19.011 Primary osteoarthritis, right shoulder
CPT/HCPCS: 73030

== ENCOUNTER 2019-03-17 07:14 | Outpatient (CLI) | payer MEDICARE, SELFPAY ==
[2019-03-17] VITALS (9 sets, daily range): BP systolic 130–151; BP diastolic 70–81; PULSE 64–75; RESP 16–18; TEMP 36.5; O2SAT 94–100
--- NOTE | 2019-03-17 07:19 | DI.RAD.S_ITS ---
PROCEDURE: PAIN L/S FACET INJ/BLK 1ST FRITZ COMPARISON: None. INDICATIONS: SPONDYLOSIS FINDINGS: 6 intraoperative fluoroscopy images demonstrate needle placement at L4, L5 and S1 levels. IMPRESSION: Fluoroscopy for pain management. Dictated by: Concepción Evans M.D. on 03/17/2019 at 9:28 Approved by: Concepción Evans M.D. on 03/17/2019 at 9:29
[2019-03-17] MEDS: MIDAZOLAM 5 MG/5 ML VIAL IV (08:44)
[2019-03-17] MEDS: fentaNYL 100 MCG/2 ML INJ 50 MCG IV (08:44)
[2019-03-17] MEDS: IOPAMIDOL 15 ML VIAL 3 ML INJ (08:51)
[2019-03-17] MEDS: BUPIVACAINE 0.5% (PF) VIAL 5 ML INJ (08:51)
--- NOTE | 2019-03-17 08:58 | PC.NURSE ---
ASSISTING PT OFF TABLE AND TRANSPORTING TO POST PROC AREA IN STABLE CONDITION. PASSING RN CARE OF PT OFF TO SHAUNA Jarrett RN.
--- NOTE | 2019-03-17 09:06 | P.PCN_ITS ---
Procedures Date/Time Date of procedure: 03/17/19 Time of procedure: 09:06 General Procedure description: Procedure description: 1. FACET ARTHROPATHY PROCEDURES: 1. BILATERAL- L4, L5 and S1 DIAGNOSTIC MB BLOCKS with LA Anesthetic PHYSICIAN: Savage Drake DO INDICATIONS Kami Vicente is referred by Dr. Khan for treatment of Bilateral Axial LBP. DESCRIPTION OF PROCEDURE Fluoroscopically guided, contrast-controlled bilateral L4, L5 and S1 medial branch blocks with 0.5cc of 0.5% Marcaine. Following review of allergy and review of potential side effects and complications, including, but not necessarily limited to, infection, allergic reaction, local tissue breakdown, nerve injury, paralysis, stroke and possible , the patient indicated that the patient understood and agreed to proceed. An informed consent document was signed by the patient, witnessed by a nurse, and placed in the patient's chart. After review of previous anaesthesic history and IV conscious sedation the patient was deemed safe to proceed with todays procedure with IV conscious sedation as ASA class II designation. Safety time-out was performed to confirm patient ID, procedure to be performed and site of procedure. IV sedation was accomplished with a combination of 3mg of Versed and 50mcg of Fentanyl was administered by the RN after DO order, titrated to patient comfort during the course of the procedure while the patient remained responsive to all verbal commands In the prone position, following sterile prep and drape of the lumbar region, the right L4, L5 and S1 anatomical location of the medial branch of the dorsal ramus was identified fluoroscopically. Subsequently an anesthetic skin wheal using 1% lidocaine solution was initiated at each of the anatomical spots. Subsequently then a 22-gauge 3.5-inch spinal needle was atraumatically introduced and advanced under fluoroscopic guidance at each of the corresponding sites at the right L4, L5 and S1 MB. After negative aspiration, 0.2cc of Isovue 200 was injected, confirming placement without vascular or intrathecal uptake. Subsequently then 0.5cc of 0.5% Marcaine solution was injected at each of the corresponding sites at the right L4, L5 and S1 medial branch locations. The identical procedure was replicated on the left. The patient tolerated the procedure well without signs or symptoms of complications prior to transfer to the recovery area continued monitoring wi thout incident. Post-procedure, the patient was monitored initiating provocative activities to measure the amount of relief from block of the facetogenic pain. patient reported a VAS of 7 prior to the procedure and a post-procedure VAS of 1. It has been a pleasure to assist in the diagnostic and therapeutic care of your patient. Total Fluoroscopy Time: 11 seconds Total Conscious Sedation Time: 24 min POST OP INSTRUCTIONS The patient was provided with a Pain Log to complete over the next several hours and subsequent days prior to the patient's follow up with the ordering physician. If the patient has analytics senior manager relief to the solution applied, then they may be a candidate for medial branch rhizotomy. The patient is aware, was provided, once again, with a Pain Log and will follow up with the referring physician for review and clinical correlation Savage Drake DO Complications: none
--- NOTE | 2019-03-17 09:28 | PC.NURSE ---
Post procedure note: Patient arrived at 0905. Awake and alert. Able to transfer from w/c to recliner with stand by assist. Pain level 0/10. Denied any unusual numbness or tingling to lower extremities. Discharge instructions reviewed with patient and spouse with good understanding. Discharged to home w/c to car at 0922. Pain level 0/10.
== END 2019-03-17 09:22 | disposition home or self-care (01) ==
LOC: RAD 07:18
PROVIDERS: PCP Physician Assistant; Visit Provider Physical Medicine & Rehabilitation
DX: M47.816 Spondylosis without myelopathy or radiculopathy, lumbar region (principal); M47.817 Spondylosis without myelopathy or radiculopathy, lumbosacral region
CPT/HCPCS: 64493; 64494; 99152; J2250; J3010

== ENCOUNTER 2019-05-09 07:28 | Outpatient (CLI) | payer MEDICARE, SELFPAY ==
[2019-05-09] VITALS (14 sets, daily range): BP systolic 108–169; BP diastolic 44–94; PULSE 63–71; RESP 16; TEMP 36.6; O2SAT 95–100
--- NOTE | 2019-05-09 07:31 | DI.RAD.S_ITS ---
PROCEDURE: PAIN L/S MED/LAT N RFA BILAT INDICATIONS: SPONDYLOSIS FINDINGS: Fluoroscopic spot filming was performed to verify placement of spinal needles at the L4, L5, S1 level(s), as labeled on the films. Appropriate location(s) of the needle tip(s) was confirmed by injection of iodinated contrast. Dictated by: Steve Grant M.D. on 05/09/2019 at 11:18 Approved by: Steve Grant M.D. on 05/09/2019 at 11:21
[2019-05-09] MEDS: fentaNYL 100 MCG/2 ML INJ 50 MCG IV (08:59)
[2019-05-09] MEDS: MIDAZOLAM 5 MG/5 ML VIAL IV (09:19)
[2019-05-09] MEDS: LIDOCAINE 1% 20 ML 10 ML INJ (09:21)
[2019-05-09] MEDS: BUPIVACAINE 0.5% (PF) VIAL 2 ML INJ (09:22)
--- NOTE | 2019-05-09 09:35 | PC.NURSE ---
ASSISTING PT OFF TABLE AND TRANSPORTING TO POST PROC AREA IN STABLE CONDITION. PASSING RN CARE OF PT OFF TO MENDOZA Mast RN
--- NOTE | 2019-05-09 09:39 | PC.NURSE ---
0945: Received patient post procedure, awake, and alert. Assisted from WC to chair, SBA. VSS upon arrival.
--- NOTE | 2019-05-09 09:41 | P.PCN_ITS ---
Procedures Date/Time Date of procedure: 05/09/19 Time of procedure: 09:42 General Procedure description: PREOP DIAGNOSIS 1. RECALCITRANT FACET ARTHROPATHY, POST OP DIAGNOSIS 1. RECALCITRANT FACET ARTHROPATHY PROCEDURES 1. BILATERAL L4 AND L5 MEDIAL BRANCH RADIOFREQUENCY NEUROTOMY AND S1 DORSAL RAMUS BRANCH RADIOFREQUENCY NEUROTOMY, PHYSICIAN: Savage Drake DO INDICATIONS: Jules is referred by for treatment of facet arthropathy. DESCRIPTION OF PROCEDURE Bilateral L4 and L5 medial branch radiofrequency neurotomy and bilateral S1 dorsal ramus radiofrequency neurotomy under fluoroscopy with conscious sedation. The patient is well known to this clinic having undergone previous facet injections with good but temporary relief. The patient has experienced appropriate, concordant relief with previous facet and median branch blocks but the patient's pain has been recalcitrant to further conservative measures. Therefore, based upon the patient's relief and persistent symptoms, the patient is considered an appropriate candidate for facet rhizotomy. All of the patient's questions regarding the risks versus benefits of the procedure, including, but not limited to, bleeding, infection, temporary as well as lasting nerve injury, paralysis, stroke, and , as well treatment alternatives were answered to satisfaction. After obtaining informed consent, denial of pertinent drug allergies, as well as being made aware of the potential risks of bleeding, infection, spinal cord trauma, paralysis, temporary and permanent nerve damage, seizure, stroke, and possible , the patient was brought to the fluoroscopy suite and positioned prone on the fluoroscopy table. The lumbar region was prepped with Betadine and covered with a fenestrated drape in the usual sterile fashion. Appropriate monitors applied including pulse oximeter, pulse, and blood pressure for regular monitoring throughout the procedure. After review of previous anaesthesic history and IV conscious sedation the patient was deemed safe to proceed with todays procedure with IV conscious sedation as ASA class II designation. Safety time-out was performed to confirm patient ID, procedure to be performed and site of procedure. IV sedation was accomplished with a combination of 3mg of Versed and 50mcg of Fentanyl administered by the RN after DO order, titrated to patient comfort during the course of the procedure while the patient remained responsive to all verbal commands. After local infiltration using 1% lidocaine, under fluoroscopic guidance, a 10- cm RF insulated needle with a 10-mm active tip was positioned parallel to the junction of the right sacral ala and the superior articulating process where the S1 dorsal ramus resides. Needle placement was confirmed with motor stimulation of .5v on the right which produced local stimulation without radicular component. The stimulation was then increased to 1.5v with, once again, only local multifidus stimulation without radicular component. The needle was then removed and the identical procedure was performed along the length of the right L5 medial branch with motor stimulation at .7v on the right. The identical procedure was once again performed along the length of the right L4 medial branch with motor stimulation of .5v on the right. The medial branches were then anesthetised with 0.5% Marcaine. This was then followed by two discreet lesions performed at 80 degrees Celsius for 90 seconds each. The identical procedure was repeated on the left. The patient tolerated the procedure well without signs or symptoms of complications prior to transfer to the recovery area continued monitoring without incident. The patient was then transferred to the recovery area where they were observed for an appropriate period of time after the injection. The patient reported a VAS score of 9 prior to the procedure and a post-procedure VAS of 0. Total Fluoroscopy Time: 13 seconds Total Conscious Sedation Time: 34min POST OP INSTRUCTIONS The patient was provided a Pain Log to continue to record the patient's response to the target-specific procedure prior to the patient's follow-up visit with the referring physician. Additionally, specific post-injection care instructions and a contact number to our office were provided if concerns arise regarding possible complications associated with the procedure are suspected. Savage Drake DO Complications: none
--- NOTE | 2019-05-10 11:59 | PC.NURSE ---
FOLLOW UP CALL MADE. PT STATED I FEEL FINE BUT STILL A LITTLE WOOZIE. DENIED QUESTIONS/CONCERNS. REMINDED PT TO CONTINUE WITH PAIN LOG AND OF CLINIC NUMBER OF BACK IF SHE NEEDS TO CONTACT US BEFORE HER FOLLOW UP. PT VERBALIZED UNDERSTANDING.
--- NOTE | 2019-05-11 | DI.RAD.S_ITS ---
PROCEDURE: XR CERVICAL SPINE 4V OR 5V INDICATIONS: SPINAL STENOSIS TECHNIQUE: 6 views of the cervical spine acquired. COMPARISON: None. FINDINGS: Bones: No fractures or dislocations to the C6 level. Straightening of the normal lordotic curvature. Multilevel degenerative endplate sclerosis and spurring. Diffuse facet arthropathy. Severe narrowing of the cervical disc spaces at C3-C4, C5-C6. Moderate narrowing of the C4-C5 disc space On the right, there is mild bony foraminal narrowing at C3-C4. On the left, no definite bony foraminal stenosis. Soft tissues: Carotid atherosclerotic plaques incidentally noted. IMPRESSION: Cervical spondylosis and facet arthropathy with mild bony foraminal narrowing at C3-C4. Dictated by: Steve Grant M.D. on 05/11/2019 at 12:34 Approved by: Steve Grant M.D. on 05/11/2019 at 12:36
== END 2019-05-09 10:08 | disposition home or self-care (01) ==
LOC: RAD 07:29
PROVIDERS: PCP Physician Assistant; Referring Provider Physical Medicine & Rehabilitation; Visit Provider Physical Medicine & Rehabilitation
DX: M47.816 Spondylosis without myelopathy or radiculopathy, lumbar region (principal); M47.817 Spondylosis without myelopathy or radiculopathy, lumbosacral region
CPT/HCPCS: 64635; 64636; 99152; J2250; J3010

== ENCOUNTER → 2019-05-11 10:42 | Outpatient (CLI) | payer MEDICARE, SELFPAY | PROVIDERS: PCP Physician Assistant; Referring Provider Physical Medicine & Rehabilitation; Visit Provider Physical Medicine & Rehabilitation | DX: M54.2 Cervicalgia (principal); Z53.9 Procedure and treatment not carried out, unspecified reason | CPT/HCPCS: 72050 ==

== ENCOUNTER → 2019-08-08 11:13 | Outpatient (CLI) | payer MEDICARE, SELFPAY ==
[2019-08-08 12:25] LABS: Add Manual Diff / Slide Review NO; Basophils Absolute Auto 0 /uL (0-100); Basophils Percent Auto 0.7 % (0-2); Eosinophils Absolute Auto 100 /uL (0-450); Eosinophils Percent Auto 1.5 % (2-4); Hematocrit 36.1 % (36-46); Hemoglobin 12.1 g/dL (12.0-16.0); Lymphocytes Absolute Auto 2200 /uL (1100-4500); Lymphocytes Percent Auto 34.1 % (25-40); Mean Corpuscular HGB Conc 33.4 % (30-36); Mean Corpuscular Hemoglobin 31.6 PG (26-34); Mean Corpuscular Volume 94.5 fL (80-100); Monocytes Absolute Auto 900 /uL (0-900); Monocytes Percent Auto 13.8 % (3-14); Neutrophils Absolute Auto 3300 /uL (1500-7000); Neutrophils Percent Auto 49.9 % (50-75); Platelet Count 187 X10^3/uL (150-400); Red Blood Cell Count 3.82 X10^6/uL (4.0-5.2); Red Cell Distribution Width 14.8 % (11.6-14.8); White Blood Cell Count 6.6 X10^3/uL (4.5-11.0)
[2019-08-08 13:11] LABS: Alanine Aminotransferase 12 IU/L (<35); Albumin 4.4 g/dL (3.5-5.0); Albumin Globulin Ratio 1.5 (1.0-2.8); Alkaline Phosphatase 65 U/L (38-126); Aspartate Aminotransferase 26 IU/L (14-36); BUN Creatinine Ratio 15.7 (6-22); Bilirubin Total 0.5 mg/dL (0.2-1.3); Blood Urea Nitrogen 14 mg/dL (7-17); Carbon Dioxide 28 mmol/L (22-32); Chloride 103 mmol/L (98-107); Cholesterol 181 mg/dL (140-199); Estimated Glomerular Filt Rate > 60.0 mL/min (>60); Glucose 93 mg/dL (80-110); HDL Cholesterol 74 mg/dL (40-60); HEMOLYSIS < 15 (0-50); LDL Cholesterol Calculated 84 mg/dL (<100); Potassium 4.3 mmol/L (3.4-5.1); Sodium 139 mmol/L (137-145); Total Protein 7.4 g/dL (6.3-8.2); Triglycerides 115 mg/dL (35-150)
[2019-08-08 17:26] LABS: Vitamin D 25 Hydroxy (D3) 60.2 ng/mL (30.0-100.0)
== END ==
PROVIDERS: PCP Physician Assistant; Referring Provider Physician Assistant; Visit Provider Physician Assistant
DX: E78.2 Mixed hyperlipidemia (principal); F32.9 Major depressive disorder, single episode, unspecified; R53.83 Other fatigue; J44.9 Chronic obstructive pulmonary disease, unspecified; M79.10 Myalgia, unspecified site
CPT/HCPCS: 36415; 80053; 80061; 82306; 85025

== ENCOUNTER → 2019-08-19 09:11 | Outpatient (CLI) | payer MEDICARE, SELFPAY ==
--- NOTE | 2019-08-19 | DI.MG.S_ITS ---
BILATERAL DIGITAL DIAGNOSTIC MAMMOGRAM 3D/2D: 08/19/2019 CLINICAL: Breast pain. Comparison is made to exams dated: 06/15/2015 mammogram, 08/28/2006 mammogram, 12/06/2015 mammogram, and 06/27/2015 mammogram - [facility]. There are scattered fibroglandular elements in both breasts. No significant masses, calcifications, or other findings are seen in either breast. Specifically, no finding to correspond to the patient's painful focus in the 3:00 anterior breast. IMPRESSION: INCOMPLETE: NEEDS ADDITIONAL IMAGING EVALUATION There is no abnormality seen in the right breast to correspond with the pain at 3 o'clock in the sub-areolar depth, however, ultrasound is recommended. This was performed immediately following this exam. This exam was interpreted at Station ID: [id number]. NOTE: For mammograms, a report in lay terms will be sent to the patient. Approximately 15% of breast malignancies will not be visualized mammographically. In the management of a palpable breast mass, a negative mammogram must not discourage biopsy of a clinically suspicious lesion. Electronically Signed By: Rachel castillo/:08/19/2019 11:37:30 ACR BI-RADS Category 0: Incomplete [id number]
--- NOTE | 2019-08-19 | DI.US.S_ITS ---
ULTRASOUND OF RIGHT BREAST: 08/19/2019 CLINICAL: Rt Breast nipple pain. Comparison is made to exams dated: 08/19/2019 mammogram and 06/15/2015 mammogram - [facility]. Real-time ultrasound of the right breast was performed. Umana scale images of the real-time examination were reviewed. There is benign duct ectasia in the right breast central to the nipple in the retroareolar region. Color flow imaging demonstrates that there is no vascularity present. No suspicious finding to explain the patient's pain. IMPRESSION: BENIGN There is no sonographic evidence of malignancy. The duct ectasia in the right breast is benign. Return to annual mammogram screening schedule is recommended. The patient needed to leave before final results could be verbally conveyed to the patient. A letter with benign results will be mailed to the patient. This exam was interpreted at Station ID: [id number]. Electronically Signed By: Rachel castillo/:08/19/2019 11:41:10 letter sent: Normal Exam Ultrasound BI-RADS: 2 Benign
== END ==
PROVIDERS: PCP Physician Assistant; Referring Provider Physician Assistant; Visit Provider Physician Assistant
DX: R92.8 Other abnormal and inconclusive findings on diagnostic imaging of breast (principal); N64.4 Mastodynia; N60.41 Mammary duct ectasia of right breast
CPT/HCPCS: 76642; 77066; G0279

== ENCOUNTER → 2019-11-16 08:12 | Outpatient (CLI) | payer MEDICARE, SELFPAY ==
[2019-11-17 08:51] LABS: COVID19 Sendout Not Detected (Not Detect)
== END ==
PROVIDERS: PCP Physician Assistant; Visit Provider Physician Assistant
DX: Z11.59 Encounter for screening for other viral diseases (principal)
CPT/HCPCS: 87635

== ENCOUNTER → 2020-06-14 18:34 | Outpatient (ROUT) | payer OTHER, SELFPAY ==
[2020-06-14 18:57] LABS: Add Manual Diff / Slide Review NO; Basophils Absolute Auto 0 /uL (0-100); Basophils Percent Auto 0.6 % (0-2); Eosinophils Absolute Auto 400 /uL (0-450); Eosinophils Percent Auto 4.5 % (2-4); Hematocrit 34.5 % (36-46); Hemoglobin 11.5 g/dL (12.0-16.0); Lymphocytes Absolute Auto 2700 /uL (1100-4500); Lymphocytes Percent Auto 33.6 % (25-40); Mean Corpuscular HGB Conc 33.3 % (30-36); Mean Corpuscular Volume 96.3 fL (80-100); Monocytes Absolute Auto 1300 /uL (0-900); Monocytes Percent Auto 15.6 % (3-14); Neutrophils Absolute Auto 3700 /uL (1500-7000); Neutrophils Percent Auto 45.7 % (50-75); Platelet Count 216 X10^3/uL (150-400); Red Blood Cell Count 3.59 X10^6/uL (4.0-5.2); Red Cell Distribution Width 14.6 % (11.6-14.8); White Blood Cell Count 8.2 X10^3/uL (4.5-11.0)
[2020-06-14 19:03] LABS: HEMOLYSIS < 15 (0-50); Iron 94 ug/dL (37-170)
[2020-06-14 19:05] LABS: Alanine Aminotransferase 15 IU/L (<35); Albumin 4.3 g/dL (3.5-5.0); Albumin Globulin Ratio 1.5 (1.0-2.8); Alkaline Phosphatase 68 U/L (38-126); Aspartate Aminotransferase 30 IU/L (14-36); BUN Creatinine Ratio 19.6 (6-22); Bilirubin Total 0.4 mg/dL (0.2-1.3); Blood Urea Nitrogen 20 mg/dL (7-17); Calcium 10.1 mg/dL (8.4-10.2); Carbon Dioxide 27 mmol/L (22-32); Chloride 104 mmol/L (98-107); Cholesterol 177 mg/dL (140-199); Estimated Glomerular Filt Rate 52.3 mL/min (>60); Globulin 2.8 g/dL (1.7-4.1); Glucose 108 mg/dL (80-110); HDL Cholesterol 90 mg/dL (40-60); HEMOLYSIS < 15 (0-50); LDL Cholesterol Calculated 68 mg/dL (<100); Potassium 4.6 mmol/L (3.4-5.1); Sodium 138 mmol/L (137-145); Total Protein 7.1 g/dL (6.3-8.2); Triglycerides 96 mg/dL (35-150); Uric Acid 3.1 mg/dL (2.5-6.2)
[2020-06-14 19:14] LABS: Percent Iron Saturation 31 % (15-50); Total Iron Binding Capacity 308 ug/dL (265-497); Transferrin 255 mg/dL (206-381)
[2020-06-14 19:21] LABS: Vitamin D 25 Hydroxy (D3) 45.9 ng/mL (30.0-100.0)
[2020-06-14 19:40] LABS: Ferritin 32 ng/mL (11-264)
[2020-06-14 20:10] LABS: Folate 10.5 ng/mL (2.76-20.0); Vitamin B12 252 pg/mL (239-931)
== END ==
PROVIDERS: PCP Physician Assistant; Visit Provider Physician Assistant
DX: M10.9 Gout, unspecified (principal); E78.2 Mixed hyperlipidemia; J44.9 Chronic obstructive pulmonary disease, unspecified; E55.9 Vitamin D deficiency, unspecified; D64.9 Anemia, unspecified
CPT/HCPCS: 80053; 80061; 82306; 82607; 82728; 82746; 83540; 83550; 84550; 85025

== ENCOUNTER → 2020-06-15 11:03 | Outpatient (CLI) | payer OTHER, SELFPAY ==
--- NOTE | 2020-06-15 11:06 | DI.RAD.S_ITS ---
PROCEDURE: XR LUMBAR SPINE MIN 4V INDICATIONS: BACK PAIN TECHNIQUE: 5 views of the lumbar spine were acquired, including bilateral oblique views. COMPARISON: [facility], MR, MR LUMBAR SPINE WO CON, 04/22/2018, 16:19. [facility], CR, XR LUMBAR SPINE MIN 4V, 05/21/2018, 12:50. FINDINGS: Bones: 6 nonrib-bearing vertebrae are present. For the purpose of this dictation, they are described as T12, and L1 through L5. This correlates with the previous dictation. Stable mild degenerative anterolisthesis of L4 on L5 and of L5 on S1. Lower lumbar facet arthropathy. Multilevel degenerative disc space loss. No vertebral body compression fractures. No suspicious bony lesions. Soft tissues: Overlying bowel gas pattern is normal. No suspicious soft tissue calcifications. Oblique images: No pars defects. IMPRESSION: 1. Incidental note is made of 6 non rib-bearing lumbar vertebral bodies, described as T12 and L1 through L5. This correlates with the previous dictations' numbering systems. 2. Stable mild degenerative anterolisthesis of L4 on L5 and of L5 on S1. 3. Multilevel degenerative disc disease and posterior facet arthropathy. Dictated by: Lopez Joyner M.D. on 06/15/2020 at 17:27 Approved by: Lopez Joyner M.D. on 06/15/2020 at 17:31
== END ==
PROVIDERS: PCP Physician Assistant; Referring Provider Physical Medicine & Rehabilitation; Visit Provider Physical Medicine & Rehabilitation
DX: M47.816 Spondylosis without myelopathy or radiculopathy, lumbar region (principal); M51.26 Other intervertebral disc displacement, lumbar region; M51.36 Other intervertebral disc degeneration, lumbar region; M43.16 Spondylolisthesis, lumbar region; M43.17 Spondylolisthesis, lumbosacral region; M75.41 Impingement syndrome of right shoulder; M47.814 Spondylosis without myelopathy or radiculopathy, thoracic region
CPT/HCPCS: 72110; 99213

== ENCOUNTER → 2021-11-13 08:53 | Outpatient (CLI) | payer OTHER, SELFPAY ==
--- NOTE | 2021-11-13 08:55 | DI.US.S_ITS ---
LIMITED ULTRASOUND OF LEFT BREAST: 11/13/2021 CLINICAL: Palpable left breast lump. Comparison is made to exams dated: 11/13/2021 mammogram, 08/19/2019 mammogram, 12/06/2015 specimen, 12/06/2015 mammogram, 12/06/2015 localization, and 12/03/2015 [facility]. Continuous wave Doppler ultrasound of the left breast upper inner quadrant was performed. There is a benign dilated duct which tapers away from the nipple as expected in the left breast central to the nipple in the retroareolar region. This dilated duct is internally anechoic and displays posterior acoustic enhancement. This correlates as an incidental finding. Color flow imaging demonstrates that there is no vascularity present. No finding to correspond to the patient's palpable abnormality. IMPRESSION: BENIGN There is no sonographic correlate to the patient's palpable abnormality and no evidence of malignancy. The dilated duct in the left breast is benign. Return to annual mammogram screening schedule is recommended. Findings and recommendations were conveyed to the patient at time of exam. This exam was interpreted at Station ID: [id number]. Electronically Signed By: Rachel castillo/:11/13/2021 10:15:14 Entry: - 11/14/2021 14:53:44 Ultrasound BI-RADS: 2 Benign
--- NOTE | 2021-11-13 08:55 | DI.MG.S_ITS ---
BILATERAL DIGITAL DIAGNOSTIC MAMMOGRAM 3D/2D: 11/13/2021 CLINICAL: Bilateral Breast discomfort. Comparison is made to exams dated: 08/19/2019 mammogram, 08/28/2006 mammogram, and 06/15/2015 mammogram - [facility]. There are scattered areas of fibroglandular density in both breasts (category b / 25%-50% glandular tissue). No significant masses, calcifications, or other findings are seen in either breast. Specifically, no finding to correspond to the patient's palpable abnormality in either breast. IMPRESSION: INCOMPLETE: NEEDS ADDITIONAL IMAGING EVALUATION There is no abnormality seen in the right breast to correspond with the palpable abnormality at 1 o'clock in the anterior to middle depth, however, ultrasound is recommended. There is no abnormality seen in the left breast to correspond with the palpable abnormality at 12 o'clock in the anterior depth, however, ultrasound is recommended. Bilateral breast ultrasound was performed immediately following this exam. Based on the Tyrer Cuzick model (a risk assessment model) the patient's lifetime risk is 9.7% and her 10 year risk is 0.0%. According to the ACR, ACS, and NCCN guidelines, an annual breast MRI exam along with mammogram is recommended if the patient's lifetime risk is 20% or greater. This exam was interpreted at Station ID: [id number]. NOTE: For mammograms, a report in lay terms will be sent to the patient. Approximately 15% of breast malignancies will not be visualized mammographically. In the management of a palpable breast mass, a negative mammogram must not discourage biopsy of a clinically suspicious lesion. Electronically Signed By: Rachel castillo/:11/13/2021 10:15:57 ACR BI-RADS Category 0: Incomplete [id number]
--- NOTE | 2021-11-13 08:55 | DI.US.S_ITS ---
LIMITED ULTRASOUND OF RIGHT BREAST: 11/13/2021 CLINICAL: Palpable right breast lump. Comparison is made to exams dated: 11/13/2021 mammogram, 08/19/2019 ultrasound, 08/19/2019 mammogram, 06/15/2015 mammogram, and 08/28/2006 mammogram - [facility]. Ultrasound of the right breast upper inner quadrant was performed. Umana scale images of the real-time examination were reviewed. There is a benign 0.2 cm x 0.2 cm x 0.2 cm round cyst in the right breast at 2 o'clock middle depth 7 cm from the nipple. This round cyst is hypoechoic with posterior acoustic enhancement. This correlates as an incidental finding. Color flow imaging demonstrates that there is no vascularity present. No finding to correspond to the patient's palpable abnormality. IMPRESSION: BENIGN There is no correlate to patients palpable abnormality and no sonographic evidence of malignancy. The 0.2 cm incidental round cyst in the right breast most likely is a simple cyst or a minimally complicated cyst and is benign. Return to annual mammogram screening schedule is recommended. Findings and recommendations were conveyed to the patient at time of exam. This exam was interpreted at Station ID: [id number]. Electronically Signed By: Rachel castillo/:11/13/2021 10:11:53 letter sent: Normal Exam Ultrasound BI-RADS: 2 Benign
== END ==
PROVIDERS: PCP Physician Assistant; Referring Provider Physician Assistant; Visit Provider Physician Assistant
DX: N64.4 Mastodynia (principal); R92.8 Other abnormal and inconclusive findings on diagnostic imaging of breast
CPT/HCPCS: 76642; 77066; G0279

== ENCOUNTER → 2022-05-29 14:10 | Outpatient (CLI) | payer OTHER, SELFPAY ==
--- NOTE | 2022-05-29 14:26 | DI.DEXA.S_ITS ---
Bone Density Report Name: SHERRIE GREGG Age: 82 Sex: Female Ethnicity: White Date of : 1940 Indication: postmenopausal; screening for osteoporosis; history of glucocorticoids; Referring Provider: JORDAN LANDA Study: Bone densitometry was performed. Exam Date: May 29, 2022 Accession number: [id number] Bone Density: Region BMD T-score Z-score Classification AP Spine(L1-L4) 1.145 0.9 3.6 Normal Femoral Neck (Left) 0.696 -1.4 1.0 Osteopenia Total Hip (Left) 0.927 -0.1 2.0 Normal Femoral Neck (Right) 0.723 -1.1 1.2 Osteopenia Total Hip (Right) 0.830 -0.9 1.2 Normal Total Hip Mean 0.879 -0.5 1.6 Normal World Health Organization criteria for BMD impression classify patients as: Normal (T-score at or above -1.0), Osteopenia (T-score between -1.0 and -2.5), or Osteoporosis (T-score at or below -2.5). 10-year Fracture Risk(1): Major Osteoporotic Fracture 19% Hip Fracture 5.3% Reported Risk Factors: [place] (), Neck BMD=0.696, BMI=29.8, glucocorticoids (1) FRAX(R) Version 3.08. Fracture probability calculated for an untreated patient. Fracture probability may be lower if the patient has received treatment. Previous Exams: -- Region Exam Age BMD T-score BMD Change BMD Change Date g/cm2 vs Baseline vs Previous -- AP Spine (L1-L4) 05/29/2022 82 1.145 0.9 -0.031 (-2.6%)# -0.031 (-2.6%)# 06/15/2015 75 1.176 1.2 Total Hip(Left) 05/29/2022 82 0.927 -0.1 -0.053 (-5.4%)# -0.053 (-5.4%)# 06/15/2015 75 0.980 0.3 Total Hip(Right) 05/29/2022 82 0.830 -0.9 -0.142 (-14.6%)# -0.142 (-14.6%)# 06/15/2015 75 0.972 0.2 -- *Denotes significance at 95% confidence level, LSC for AP Spine = 0.022 g/cm2, LSC for Total Hip = 0.027 g/cm2 # Denotes dissimilar scan types or analysis methods Impression: The patient has low bone mass, based on the Left Femoral Neck T-score. The patient has an estimated ten-year risk of hip fracture of 5.3% and an estimated ten-year risk of major fracture of 19%, based on the WHO FRAX algorithm. The patient has risk factors, including: history of glucocorticoid therapy. No significant bone loss was observed. Discussion: BONE DENSITY IS LOW AT ONE OR MORE SKELETAL SITES. THE PATIENT'S BMD AND CLINICAL RISK FACTORS CONTRIBUTE TO THIS PATIENT'S INCREASED RISK OF FRACTURE. This patient's lowest T-score is low at one or more skeletal sites. It meets the World Health Organization's (WHO) criteria for ?low bone mass? (T-score between -1.0 and -2.5). The patient's 10-year risk of hip fracture as calculated by FRAX exceeds the threshold where pharmacological therapy is recommended by the National Osteoporosis Foundation (NOF). However, all treatment decisions require clinical judgment and consideration of individual patient factors, including patient preferences, comorbidities, previous drug use, risk factors not captured in the FRAX model (e.g., frailty, falls, vitamin D deficiency, increased bone turnover, interval significant decline in bone density) and possible under or overestimation of fracture risk by FRAX. The patient should follow a healthful lifestyle (good nutrition with adequate calcium and vitamin D, and appropriate weight-bearing exercise). Follow-Up: Consider a repeat BMD and Vertebral Fracture Assessment (VFA) exam in 2 years or sooner if medically necessary, to reassess this patient's status. Reported by: TRENTON LYONS M.D. on 05/29/2022 2:40:00 PM.
== END ==
PROVIDERS: PCP Internal Medicine; Referring Provider Internal Medicine; Visit Provider Internal Medicine
DX: Z78.0 Asymptomatic menopausal state (principal); Z13.820 Encounter for screening for osteoporosis; M85.852 Other specified disorders of bone density and structure, left thigh; Z92.23 Personal history of estrogen therapy; Z90.710 Acquired absence of both cervix and uterus
CPT/HCPCS: 77080

== ENCOUNTER 2022-10-08 13:14 | Day surgery (SDC) | payer OTHER, SELFPAY ==
--- NOTE | 2022-10-08 | PATH_ITS ---
[facility] Accession Number: [id number] No. of containers..01 Tissue . 01 Material submitted: . sigmoid colon - SIGMOID POLYP . 01 Diagnosis: Sigmoid Colon Polyp, Biopsy: Tubular adenoma. MRV 10/20/2022 2016 Local . 01 Electronically signed: . Lien Beauchamp MD, Pathologist NPI- [id number] . 01 Gross description: . SIGMOID POLYP: Received in formalin is 2 fragment(s) of guadarrama, soft tissue measuring 0.4 x 0.3 x 0.3 cm to 0.2 x 0.1 x 0.1 cm submitted entirely in 1 cassette(s) /AAY 10/14/2022 1215 Local . 01 Pathologist provided ICD-10: D12.5 . 01 CPT . 659598 Specimen Comment: A courtesy copy of this report has been sent to [phone] Performed at: 01 [facility] [address] [place] [address], [place], [place] [id number] MD John Chamberlain MD Phone: [phone]
--- NOTE | 2022-10-08 13:39 | P.HP_ITS ---
History of Present Illness History of Present Illness Date Patient Seen: 10/08/22 Chief complaint: Colonoscopy Narrative: Rectal bleeding now resolved [facility] Medical History Adverse effect of drug in therapeutic use (~01/2020) Anxiety Asthma Atopic dermatitis (~01/2020) Atypical chest pain Depression Facet arthropathy, lumbar Facet arthropathy, thoracic Fatigue Herniated nucleus pulposus, L3-4 HNP (herniated nucleus pulposus) Hypertension Lumbosacral spondylosis Obstructive sleep apnea of adult Primary insomnia Spinal stenosis Spondylolisthesis at L4-L5 level Surgical History History of total replacement of left shoulder joint S/P shoulder replacement Family History Father Arthritis Social History marital status: details: to Savage LucyBen), lives in [place] household members: spouse lives independently: Yes caregiver/support person: No housing: house Smoking Status: Never smoker alcohol intake: current Meds Home Medications and Allergies Home Medications Medication Instructions Recorded Confirmed Type Resmed Airsense 10 CPAP #1 ea 06/30/18 12/10/21 History albuterol sulfate 90 mcg/actuation 1 dose inhalation PRN PRN 07/13/18 12/10/21 History aerosol inhaler Shortness Of Breath tramadol 50 mg tablet 50 mg PO Q8H PRN pain #40 tabs 01/28/22 Rx atorvastatin 10 mg tablet 10 mg PO DAILY 10/08/22 10/08/22 History bupropion HCl 75 mg tablet 75 mg PO DAILY 10/08/22 10/08/22 History gabapentin 300 mg capsule 300 mg PO BEDTIME 10/08/22 10/08/22 History ipratropium 20 mcg-albuterol 100 1 puff inhalation Q6H 10/08/22 10/08/22 History mcg/actuation mist for inhalation (Combivent Respimat) ipratropium bromide 42 mcg (0.06 1 - 2 spray intranasal Q4-6H 10/08/22 10/08/22 History %) nasal spray minoxidil 2.5 mg tablet 1.25 mg PO DAILY 10/08/22 10/08/22 History tiotropium bromide 18 mcg capsule 1 cap inhalation DAILY 10/08/22 10/08/22 History with inhalation device (Spiriva with HandiHaler) upadacitinib 15 mg tablet,extended 15 mg PO DAILY 10/08/22 10/08/22 History release 24 hr (Rinvoq) venlafaxine 37.5 mg 37.5 mg PO DAILY 10/08/22 10/08/22 History capsule,extended release 24 hr Allergies Allergy/AdvReac Type Severity Reaction Status Date / Time No Known Drug Allergies Allergy Verified 10/08/22 13:28 Exam Narrative Exam Narrative: Oropharynx free of lesions Chest clear to auscultation percussion Cardiac exam reveals no S3 or murmur Assessment & Plan Assessment & Plan narrative: Rectal bleeding need for diagnostic colonoscopy. Risks, benefits, alternatives have been explained.
[2022-10-08 13:40] VITALS: BMI 26.1
--- NOTE | 2022-10-08 13:40 | PM.OP.COLON ---
Operative Date/Time/Diagnoses Date of procedure: 10/08/22 Procedure & Clinicians Study performed: Colonoscopy Indications: Rectal bleed now resolved. No further bleeding with preparation Surgeon: Scarlett Zhang Procedure Notes Procedure in detail: After informed consent was obtained the patient was placed in left lateral decubitus position. The video colonoscope was introduced the rectum slowly advanced cecum. Preparation was good. On slow withdrawal mucosa was carefully examined. The scope was removed. The patient tolerated procedure well. Blood loss none Complications none Sedation mac Findings 1. Extensive sigmoid diverticulosis with no evidence of diverticulitis 2. 5 mm sessile polyp in the sigmoid colon Jumbo biopsy removed completely 3. Moderate internal hemorrhoids 4. Otherwise negative colonoscopy to cecum Ms. Donald probably had bleeding from internal hemorrhoids. We will get back to regarding the biopsies but she will not need follow-up colonoscopy unless symptomatic. He will call for additional difficulties
[2022-10-08 13:45] VITALS: BP 157/91; PULSE 81; RESP 16; TEMP 36.3; O2SAT 99
[2022-10-08] MEDS: LACTATED RINGERS 1,000 ML 42 ML IV (13:53)
[2022-10-08 15:04] VITALS: BP 141/74; PULSE 69; RESP 14; TEMP 36.6; O2SAT 96
[2022-10-08 15:08] VITALS: BP 138/79; PULSE 69; RESP 14; O2SAT 97
[2022-10-08 15:13] VITALS: BP 147/78; PULSE 67; RESP 15; O2SAT 98
== END 2022-10-08 15:30 | disposition home or self-care (01) ==
PROVIDERS: PCP Internal Medicine; Referring Provider Internal Medicine Gastroenterology; Visit Provider Internal Medicine Gastroenterology
PROC: 0DJD8ZZ Inspection of Lower Intestinal Tract, Via Natural or Artificial Opening Endoscopic (ICD-10-PCS; CPT 45378; principal; 2022-10-08 14:30)
DX: K62.5 Hemorrhage of anus and rectum (principal); K64.8 Other hemorrhoids; K57.30 Diverticulosis of large intestine without perforation or abscess without bleeding; D12.5 Benign neoplasm of sigmoid colon
CPT/HCPCS: 45380; J2704

== ENCOUNTER → 2023-02-06 13:08 | Outpatient (CLI) | payer OTHER, SELFPAY ==
--- NOTE | 2023-02-06 13:09 | DI.RAD.S_ITS ---
PROCEDURE: XR LUMBAR SPINE MIN 4V INDICATIONS: BACK PAIN TECHNIQUE: 5 views of the lumbar spine were acquired, including bilateral oblique views. COMPARISON: [facility], CR, XR LUMBAR SPINE MIN 4V, 06/15/2020, 11:07. [facility], CR, XR LUMBAR SPINE MIN 4V, 05/21/2018, 12:50. FINDINGS: Bones: 5 nonrib-bearing vertebrae are present. There is stable appearing bony alignment with mild rate 1 anterolisthesis again noted at the L4-5 disc level and also a slightly lesser degree of such anterolisthesis is again seen at L5-S1. The degenerative disc disease and facet osteoarthritis is most prominent at these lower 2 levels, and overall there is moderate to moderately severe degenerative change in those areas. No vertebral body compression fractures. No suspicious bony lesions. Soft tissues: Overlying bowel gas pattern is normal. No suspicious soft tissue calcifications. Oblique images: No pars defects. IMPRESSION: Moderately severe degenerative changes as discussed above along the lumbosacral spine most pronounced at L4-5 and L5-S1 allowing mild grade 1 anterolisthesis at these 2 levels. This is unchanged from the prior study in May of 2020 and little if any changed from April 2018. No compression fracture has developed. Dictated by: George Hebert M.D. on 02/06/2023 at 13:34 Approved by: George Hebert M.D. on 02/06/2023 at 13:36
== END ==
PROVIDERS: PCP Internal Medicine; Referring Provider Physical Medicine & Rehabilitation; Visit Provider Physical Medicine & Rehabilitation
DX: M47.816 Spondylosis without myelopathy or radiculopathy, lumbar region (principal); M43.16 Spondylolisthesis, lumbar region; M47.817 Spondylosis without myelopathy or radiculopathy, lumbosacral region; M43.17 Spondylolisthesis, lumbosacral region
CPT/HCPCS: 72110

== ENCOUNTER 2023-03-03 08:45 | Outpatient (CLI) | payer OTHER, SELFPAY ==
[2023-03-03] VITALS (8 sets, daily range): BP systolic 119–165; BP diastolic 58–77; PULSE 74–87; RESP 13–18; TEMP 36.5; O2SAT 96–97
--- NOTE | 2023-03-03 09:15 | DI.RAD.S_ITS ---
PROCEDURE: PAIN L/S FACET INJ/BLK 1ST FRITZ INDICATIONS: FACET ARTHOPATHY COMPARISON: [facility], CR, XR LUMBAR SPINE MIN 4V, 06/15/2020, 11:07. [facility], CR, XR LUMBAR SPINE MIN 4V, 02/06/2023, 13:11. FINDINGS: Fluoroscopic spot filming was performed to verify placement of spinal needles at the L4, L5 and S1 level(s), as labeled on the films. Appropriate location(s) of the needle tip(s) was confirmed by injection of iodinated contrast. IMPRESSION: Fluoroscopy for pain management. Dictated by: Concepción Evans M.D. on 03/03/2023 at 11:40 Approved by: Concepción Evans M.D. on 03/03/2023 at 11:41
[2023-03-03] MEDS: MIDAZOLAM 2 MG/2 ML VIAL IV (09:26)
[2023-03-03] MEDS: LIDOCAINE 1% 20 ML 5 ML INJ (09:30)
[2023-03-03] MEDS: BUPIVACAINE 0.5% (PF) 10 ML VIAL 2 ML INJ (09:31)
[2023-03-03] MEDS: iopamidoL 15 ML VIAL 3 ML INJ (09:31)
--- NOTE | 2023-03-03 09:44 | P.PCN_ITS ---
Date/Time/Diagnoses Date of procedure: 03/03/23 Time of procedure: 09:44 Pre-procedure diagnosis: 1. FACET ARTHROPATHY Post-procedure diagnosis: same Procedure Notes Procedure: 1. BILATERAL- L4, L5 and S1 DIAGNOSTIC MB BLOCKS with LA Anesthetic Indications: Kami Vicente is referred by Dr. Davila for treatment of Bilateral Axial LBP. Physician: Savage Drake Total Fluoroscopy time (seconds): 10 Total sedation minutes: 14 Complications: none Procedure in detail & Post-procedure care: DESCRIPTION OF PROCEDURE Fluoroscopically guided, contrast-controlled bilateral L4, L5 and S1 medial branch blocks with 0.5cc of 0.5% Marcaine. Following review of allergy and review of potential side effects and complications, including, but not necessarily limited to, infection, allergic reaction, local tissue breakdown, nerve injury, paralysis, stroke and possible , the patient indicated that the patient understood and agreed to proceed. An informed consent document was signed by the patient, witnessed by a nurse, and placed in the patient's chart. After review of previous anaesthesic history and IV conscious sedation the patient was deemed safe to proceed with today's procedure with IV conscious dave tion as ASA class II designation. Safety time-out was performed to confirm patient ID, procedure to be performed and site of procedure. IV sedation was accomplished with a combination of 2mg of Versed was administered by the RN after DO order, titrated to patient comfort during the course of the procedure while the patient remained responsive to all verbal commands In the prone position, following sterile prep and drape of the lumbar region, the right L4, L5 and S1 anatomical location of the medial branch of the dorsal ramus was identified fluoroscopically. Subsequently an anesthetic skin wheal using 1% lidocaine solution was initiated at each of the anatomical spots. Subsequently then a 22-gauge 3.5-inch spinal needle was atraumatically introduced and advanced under fluoroscopic guidance at each of the corresponding sites at the right L4, L5 and S1 MB. After negative aspiration, 0.2cc of Isovue 200 was injected, confirming placement without vascular or intrathecal uptake. Subsequently then 0.5cc of 0.5% Marcaine solution was injected at each of the corresponding sites at the right L4, L5 and S1 medial branch locations. The identical procedure was replicated on the left. The patient tolerated the procedure well without signs or symptoms of complications prior to transfer to the recovery area continued monitoring without incident. Post-procedure, the patient was monitored initiating provocative activities to measure the amount of relief from block of the facetogenic pain. The patient reported a VAS of 7 prior to the procedure and a post-procedure VAS of 1. It has been a pleasure to assist in the diagnostic and therapeutic care of your patient. POST OP INSTRUCTIONS The patient was provided with a Pain Log to complete over the next several hours and subsequent days prior to the patient's follow up with the ordering physician. 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 The patient is aware, was provided, once again, with a Pain Log and will follow up with the referring physician for review and clinical correlation
--- NOTE | 2023-03-04 10:24 | PC.NURSE ---
Procedure follow up call: left message @ [phone] Encouraged to call the office with any questions, concerns or need to schedule apptointment.
== END 2023-03-03 10:00 | disposition home or self-care (01) ==
LOC: RAD 08:46
PROVIDERS: PCP Internal Medicine; Referring Provider Physical Medicine & Rehabilitation; Visit Provider Physical Medicine & Rehabilitation
DX: M47.816 Spondylosis without myelopathy or radiculopathy, lumbar region (principal); M47.817 Spondylosis without myelopathy or radiculopathy, lumbosacral region
CPT/HCPCS: 64493; 64494; 99152; J2250; J3010

== ENCOUNTER 2023-07-28 15:13 | Outpatient (CLI) | payer MEDICARE, SELFPAY ==
[2023-07-28] VITALS (8 sets, daily range): BP systolic 128–180; BP diastolic 73–88; PULSE 80–87; RESP 14–18; TEMP 37.2; O2SAT 99–100
--- NOTE | 2023-07-28 16:00 | DI.RAD.S_ITS ---
PROCEDURE: PAIN L/S FACET INJ/BLK 1ST FRITZ INDICATIONS: Bilateral L4-L5 S1 MBB - SA COMPARISON: [facility], , PAIN L/S FACET INJ/BLK 1ST FRITZ, 03/03/2023, 10:30. FINDINGS: Fluoroscopic spot filming was performed to verify placement of spinal needles at the L4 through S1 level(s), as labeled on the films. Appropriate location(s) of the needle tip(s) was confirmed by injection of iodinated contrast. IMPRESSION: L4 through S1 needle and contrast placement Dictated by: Sheila Hartman M.D. on 07/29/2023 at 11:21 Approved by: Sheila Hartman M.D. on 07/29/2023 at 11:22
[2023-07-28] MEDS: MIDAZOLAM 2 MG/2 ML VIAL IV (16:32)
[2023-07-28] MEDS: LIDOCAINE 1% 20 ML 5 ML INJ (16:38)
[2023-07-28] MEDS: iopamidoL 15 ML VIAL 3 ML INJ (16:38)
[2023-07-28] MEDS: LIDOCAINE 2% INJ SDV 5ML 10 ML INJ (16:39)
--- NOTE | 2023-07-28 16:53 | P.PCN_ITS ---
Date/Time/Diagnoses Date of procedure: 07/28/23 Time of procedure: 16:53 Pre-procedure diagnosis: 1. FACET ARTHROPATHY Post-procedure diagnosis: same Procedure Notes Procedure: 1. BILATERAL- L4, L5 and S1 DIAGNOSTIC MB BLOCKS with SA Anesthetic Indications: Kami Vicente is referred by Dr. Davila for treatment of Bilateral Axial LBP. Physician: Savage Drake Total Fluoroscopy time (seconds): 10 Total sedation minutes: 15 Complications: none Procedure in detail & Post-procedure care: DESCRIPTION OF PROCEDURE Fluoroscopically guided, contrast-controlled bilateral L4, L5 and S1 medial branch blocks with 0.5cc of 2% Lidocaine. Following review of allergy and review of potential side effects and complications, including, but not necessarily limited to, infection, allergic reaction, local tissue breakdown, nerve injury, paralysis, stroke and possible , the patient indicated that the patient understood and agreed to proceed. An informed consent document was signed by the patient, witnessed by a nurse, and placed in the patient's chart. After review of previous anaesthesic history and IV conscious sedation the patient was deemed safe to proceed with today's procedure with IV conscious sedation as ASA class II designation. Safety time-out was performed to confirm patient ID, procedure to be performed and site of procedure. IV sedation was accomplished with a combination of 2mg of Versed was administered by the RN after DO order, titrated to patient comfort during the course of the procedure while the patient remained responsive to all verbal commands In the prone position, following sterile prep and drape of the lumbar region, the right L4, L5 and S1 anatomical location of the medial branch of the dorsal ramus was identified fluoroscopically. Subsequently an anesthetic skin wheal using 1% lidocaine solution was initiated at each of the anatomical spots. Subsequently then a 22-gauge 3.5-inch spinal needle was atraumatically introduced and advanced under fluoroscopic guidance at each of the corresponding sites at the right L4, L5 and S1 MB. After negative aspiration, 0.2cc of Isovue 200 was injected, confirming placement without vascular or intrathecal uptake. Subsequently then 0.5cc of 2% Lidocaine solution was injected at each of the corresponding sites at the right L4, L5 and S1 medial branch locations. The identical procedure was replicated on the left. The patient tolerated the procedure well without signs or symptoms of complications prior to transfer to the recovery area continued monitoring without incident. Post-procedure, the patient was monitored initiating provocative activities to measure the amount of relief from block of the facetogenic pain. The patient reported a VAS of 8 prior to the procedure and a post-procedure VAS of 1. It has been a pleasure to assist in the diagnostic and therapeutic care of your patient. POST OP INSTRUCTIONS The patient was provided with a Pain Log to complete over the next several hours and subsequent days prior to the patient's follow up with the ordering physician. If the patient has warehouse lead relief to the solution applied, then they may be a candidate for medial branch rhizotomy. The patient is aware, was provided, once again, with a Pain Log and will follow up with the referring physician for review and clinical correlation
== END 2023-07-28 17:10 | disposition home or self-care (01) ==
LOC: RAD 15:14
PROVIDERS: PCP Internal Medicine; Referring Provider Physical Medicine & Rehabilitation; Visit Provider Physical Medicine & Rehabilitation
DX: M47.816 Spondylosis without myelopathy or radiculopathy, lumbar region (principal); M47.817 Spondylosis without myelopathy or radiculopathy, lumbosacral region
CPT/HCPCS: 64493; 64494; 99152; J2250

== ENCOUNTER 2023-08-27 07:17 | Outpatient (CLI) | payer MEDICARE, SELFPAY ==
[2023-08-27] VITALS (13 sets, daily range): BP systolic 126–186; BP diastolic 74–90; PULSE 75–81; RESP 8–16; TEMP 37; O2SAT 97–100
--- NOTE | 2023-08-27 07:54 | PC.NURSE ---
This RN called patient back to procedure room. This RN observed patient having tremors to right arm, hand and head. Patient reports that she usually has the tremors to her right arm but that she it is more so this morning. States I had 3 glasses of wine last night around 7, this is early for me in the morning and I have not eaten. Patient Denies any dizziness, lightheaded, chest pain. States I feel fine. Dr Drake notified, no new orders.
--- NOTE | 2023-08-27 08:00 | DI.RAD.S_ITS ---
PROCEDURE: PAIN L/S MED/LAT N RFA BILAT INDICATIONS: Bilateral L4-L5 and S1 medial branch RFA COMPARISON: [facility], XA, PAIN L/S MED/LAT N RFA BILAT, 05/09/2019, 8:02. FINDINGS: Fluoroscopic spot filming was performed to verify placement of spinal needles at the L4 through S1 level(s), as labeled on the films. Appropriate location(s) of the needle tip(s) was confirmed by injection of iodinated contrast. IMPRESSION: Contrast a needle placement overlying L4 through S1. Dictated by: Sheila Hartman M.D. on 08/27/2023 at 13:34 Approved by: Sheila Hartman M.D. on 08/27/2023 at 15:10
[2023-08-27] MEDS: fentaNYL 100 MCG/2 ML INJ 50 MCG IV (08:10)
[2023-08-27] MEDS: MIDAZOLAM 2 MG/2 ML VIAL 1 MG IV ×2 (08:10→08:36)
[2023-08-27] MEDS: LIDOCAINE 1% 20 ML 5 ML INJ (08:16)
[2023-08-27] MEDS: BUPIVACAINE 0.5% (PF) 10 ML VIAL 5 ML INJ (08:17)
--- NOTE | 2023-08-27 08:57 | P.PCN_ITS ---
Date/Time/Diagnoses Date of procedure: 08/27/23 Time of procedure: 08:58 Pre-procedure diagnosis: 1. RECALCITRANT FACET ARTHROPATHY Post-procedure diagnosis: same Procedure Notes Procedure: 1. BILATERAL L4 AND L5 MEDIAL BRANCH RADIOFREQUENCY NEUROTOMY AND S1 DORSAL RAMUS BRANCH RADIOFREQUENCY NEUROTOMY Indications: Kami Vicente is referred by Dr. Davila for treatment of facet arthropathy. Physician: Savage Drake Total Fluoroscopy time (seconds): 22 Total sedation minutes: 43 Complications: none Procedure in detail & Post-procedure care: DESCRIPTION OF PROCEDURE Bilateral L4 and L5 medial branch radiofrequency neurotomy and bilateral S1 dorsal ramus radiofrequency neurotomy under fluoroscopy with conscious sedation. The patient is well known to this clinic having undergone previous facet injections with good but temporary relief. The patient has experienced appropriate, concordant relief with previous facet and median branch blocks but the patient's pain has been recalcitrant to further conservative measures. Therefore, based upon the patient's relief and persistent symptoms, the patient is considered an appropriate candidate for facet rhizotomy. All of the patient's questions regarding the risks versus benefits of the procedure, including, but not limited to, bleeding, infection, temporary as well as lasting nerve injury, paralysis, stroke, and , as well treatment alternatives were answered to satisfaction. After obtaining informed consent, denial of pertinent drug allergies, as well as being made aware of the potential risks of bleeding, infection, spinal cord trauma, paralysis, temporary and permanent nerve damage, seizure, stroke, and possible , the patient was brought to the fluoroscopy suite and positioned prone on the fluoroscopy table. The lumbar region was prepped in usual sterile fashion and covered with a fenestrated drape in the usual sterile fashion. Appropriate monitors applied including pulse oximeter, pulse, and blood pressure for regular monitoring throughout the procedure. After review of previous anaesthesic history and IV conscious sedation the patient was deemed safe to proceed with today's procedure with IV conscious sedation as ASA class II designation. Safety time-out was performed to confirm patient ID, procedure to be performed and site of procedure. IV sedation was accomplished with a combination of 2mg of Versed and 50mcg of Fentanyl administered by the RN after DO order, titrated to patient comfort during the course of the procedure while the patient remained responsive to all verbal commands. After local infiltration using 1% lidocaine, under fluoroscopic guidance, a 10- cm RF insulated needle with a 10-mm active tip was positioned parallel to the junction of the right sacral ala and the superior articulating process where the S1 dorsal ramus resides. Needle placement was confirmed with motor stimulation of .5v on the right which produced local stimulation without radicular component. The stimulation was then increased to 2v with, once again, only local multifidus stimulation without radicular component. The needle was then removed and the identical procedure was performed along the length of the right L5 medial branch with motor stimulation at .7v on the right. The identical procedure was once again performed along the length of the right L4 medial branch with motor stimulation of .5v on the right. The medial branches were then anesthetised with 0.5% Marcaine. This was then followed by two discreet lesions performed at 80 degrees Celsius for 90 seconds each. The identical procedure was repeated on the left. The patient tolerated the procedure well without signs or symptoms of complications prior to transfer to the recovery area continued monitoring without incident. The patient was then transferred to the recovery area where they were observed for an appropriate period of time after the injection. The patient reported a VAS score of 7 prior to the procedure and a post-procedure VAS of 1. POST OP INSTRUCTIONS The patient was provided a Pain Log to continue to record the patient's response to the target-specific procedure prior to the patient's follow-up visit with the referring physician. Additionally, specific post-injection care instructions and a contact number to our office were provided if concerns arise regarding possible complications associated with the procedure are suspected.
== END 2023-08-27 09:15 | disposition home or self-care (01) ==
LOC: RAD 07:18
PROVIDERS: PCP Internal Medicine; Referring Provider Physical Medicine & Rehabilitation; Visit Provider Physical Medicine & Rehabilitation
DX: M47.816 Spondylosis without myelopathy or radiculopathy, lumbar region (principal); M47.817 Spondylosis without myelopathy or radiculopathy, lumbosacral region
CPT/HCPCS: 64635; 64636; 99152; 99153; J2250; J3010

== ENCOUNTER → 2024-01-06 12:58 | Outpatient (CLI) | payer MEDICARE, SELFPAY | PROVIDERS: PCP Internal Medicine; Visit Provider Student in an Organized Health Care Education/Training Program | DX: S21.009A Unspecified open wound of unspecified breast, initial encounter (principal); L08.9 Local infection of the skin and subcutaneous tissue, unspecified; W55.01XA Bitten by cat, initial encounter | CPT/HCPCS: 87070; 87075; 87205 ==

== ENCOUNTER → 2024-09-05 13:48 | Outpatient (CLI) | payer MEDICARE, SELFPAY ==
--- NOTE | 2024-09-05 13:56 | DI.RAD.S_ITS ---
PROCEDURE: STERNOCLAVICULAR JOINT BI INDICATIONS: RT STERNAL CLAVICLE JUNCTION TECHNIQUE: 3 views of the sternoclavicular joints acquired. COMPARISON: None. FINDINGS: Bones: Moderate degenerative change of the bilateral sternoclavicular joints. No fractures or dislocations. No suspicious bony destruction or sclerosis. Soft tissues: Visualized lung apices are clear. No suspicious soft tissue calcifications or densities. 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 Dictated by: Akash Montez M.D. on 09/06/2024 at 6:42 Approved by: Akash Montez M.D. on 09/06/2024 at 6:43
--- NOTE | 2024-09-05 13:56 | DI.RAD.S_ITS ---
PROCEDURE: XR CERVICAL SPINE 2V OR 3V INDICATIONS: NECK PAIN TECHNIQUE: 3 view(s) of the cervical spine were acquired. COMPARISON: [facility], CR, XR CERVICAL SPINE 4V OR 5V, 05/11/2019, 10:47. FINDINGS: Bones: No fractures or dislocations to the T1 level. Moderate to severe C3-C4 and C5-C6 disc height loss with adjacent endplate sclerosis and anterior osteophytosis. Moderate multilevel bilateral facet hypertrophy. The lateral masses of C1 appear intact on the odontoid view. No suspicious bony lesions. Soft tissues: No prevertebral soft tissue swelling. IMPRESSION: Degenerative change of the cervical spine without evidence of acute osseous abnormality. Dictated by: Akash Montez M.D. on 09/06/2024 at 6:44 Approved by: Akash Montez M.D. on 09/06/2024 at 6:46
== END ==
PROVIDERS: PCP Internal Medicine; Referring Provider Internal Medicine; Visit Provider Internal Medicine
DX: M47.812 Spondylosis without myelopathy or radiculopathy, cervical region (principal); M54.2 Cervicalgia; R07.89 Other chest pain
CPT/HCPCS: 71130; 72040